=== PATIENT | male | born 1985 | race Caucasian/White ===

== ENCOUNTER 2018-03-30 09:14 | Emergency (ER) | payer SELFPAY ==
[2018-03-30 09:18] VITALS: BP 123/73; PULSE 71; RESP 15; TEMP 36.6
--- NOTE | 2018-03-30 10:14 | W.ED.GENAD ---
Discharge Plan Disposition Patient Disposition: HOME Condition: Stable Discharge Details Chief Complaint: DentalOral Clinical Impression: Pain, dental Primary Care Provider: Angelica Hidalgo ED Provider: Vick Hoskins Home Meds and New Rx's Prescriptions: New ibuprofen [IBU] 600 mg tablet 600 mg PO QID PRN (Reason: pain) Qty: 20 RF: 0 Continue acetaminophen 500 MG tablet 500 mg PO Q4H PRN (Reason: Pain) Qty: 30 RF: 0 [id number] [Excedrin Extra Strength] 250-250-65 mg Tablet 2 tab PO Q6H PRNRF: 0 Discontinued ibuprofen 200 MG tablet 800 mg PO PRN PRNRF: 0 Discharge Instructions Instructions: Toothache (ED) Additional Instructions: Feel free to return to the emergency department for new or worsening symptoms otherwise follow up with your dentist in [place] as soon as possible for reassessment and further definitive dental care. Referrals: Angelica Hidalgo [Primary Care Provider] - (If you are unable to follow-up with her dentist follow-up with your primary care provider as needed) Medical Decision Making MDM Narrative Medical decision making narrative: Patient presenting to the emergency department for chief complaint of dental pain for 3 days. Patient has no trismus, no drooling, no difficulty breathing, no vocal change. Physical exam shows missing teeth and multiple dental caries throughout the oral cavity with patient describing pain on the right upper posterior molars which are missing from dental removal and some tooth loss on left upper incisor with no signs of infection throughout any of the oral cavity. I feel that this is straightforward dental pain with no signs of Gurdeep's angina, infection, mastoiditis or other life-threatening emergencies. Patient was prescribed ibuprofen for his pain control and informed that he should follow-up with his dentist as soon as possible for reexamination. On the right upper molars from where the tooth was extracted there may be a retained fragment that is causing patient some discomfort but again no signs of serious infection so I feel that patient can be safely discharged and informed to follow-up with his primary care dentist. Patient was instructed on Orajel use along with sensitive toothpaste that may be of benefit. Patient encouraged to return for any new or worsening signs that were thoroughly discussed with him. After discussion of diagnosis and plan of care patient states no further needs, questions, or concerns at this time. HPI - General Adult General Mode of arrival: ambulatory. Date/Time Provider Initiated Documentation: 03/30/18 09:50. Limitations to Documentation: no limitations. Information obtained by: patient and RN notes reviewed. History of Present Illness 33 year old M presents to the emergency department with the chief complaint of Dental Pain, described as moderate, with intensity rated at 8. Quality is described as aching, and is localized to the mouth. Patient reports no radiation. Patient started experiencing this day(s) (3) and it has been constant. No relieving factors improve symptom(s), No exacerbating factors reported . Patient notes no other symptoms.. Patient did receive the following treatments prior to arrival, other (Excedrin extra strength) Related Data Home Medications Medication Instructions Recorded Confirmed [id number]-brzqcjwiglirm-imemdnsb 2 tab PO Q6H PRN 03/30/18 03/30/18 [Excedrin Extra Strength] Previous Rx's Medication Instructions Recorded acetaminophen 500 mg PO Q4H PRN #30 tablet 01/29/17 ibuprofen [IBU] 600 mg PO QID PRN #20 tab 03/30/18 Allergies Allergy/AdvReac Type Severity Reaction Status Date / Time Penicillins Allergy Severe Anaphylaxsi Unverified 03/30/18 09:23 s codeine Allergy Intermediate Hives Unverified 03/30/18 09:23 ketorolac Allergy Intermediate Skin Rash Unverified 03/30/18 09:23 tramadol Allergy Intermediate hives Unverified 03/30/18 09:23 naproxen [From Naprosyn] Allergy Mild hives Unverified 03/30/18 09:23 NUTS Allergy Severe Anaphylaxsi Uncoded 03/30/18 09:23 s General Stated Complaint: DentalOral PATRICIA: 4 Review of Systems Constitutional Denies body ache(s), Denies chills and Denies fever(s) ENT Reports as per HPI, Denies change in voice, Reports dental pain, Denies dysphagia, Denies lip swelling, Denies throat swelling and Denies tongue swelling Cardiovascular Denies chest pain and Denies dyspnea Respiratory Denies dyspnea Gastrointestinal Denies abdominal pain, Denies dysphagia, Denies nausea and Denies vomiting Integumentary/Breasts Denies rash Neurologic Denies confusion and Denies sensory deficit Psychiatric Denies confusion Allergic/Immunologic Denies lip swelling, Denies throat swelling and Denies tongue swelling [facility] Medical History ADHD (attention deficit hyperactivity disorder) Bipolar 1 disorder Chronic low back pain Tobacco abuse Social History Smoking/Tobacco Use Status: Current every day Surgical History Appendectomy (08/14/16) Fracture, Closed Treatment Exam Const General: cooperative, no acute distress and not ill appearing Orientation: alert, awake and oriented x3 [facility] General nose exam: external nose normal Face and sinus: normal facial exam and face symmetric Mouth: moist mucous membranes, no drooling, normal lip, No mouth trauma, no muffled voice, normal tongue, No abnormal TMJ and no trismus Teeth image: 1. missing teeth and pain no erythema, edema, or drainage 2. Some tooth loss with dental caries. No erythema, no edema, no drainage Throat: posterior oropharynx normal Neck Neck: normal visual inspection, no lymphadenopathy and no meningeal signs Resp Effort & Inspection: normal respiratory effort, able to speak in complete sentences and no respiratory distress Cardio Rate: regular rate Rhythm: regular rhythm Skin General skin exam: no rashes or lesions noted Neuro General: alert, awake, oriented x3, moves all extremities and no focal motor deficits Sensory Exam: no sensory deficits noted Course Vital Signs Temperature 36.6 C 03/30/18 09:18 Pulse 71 03/30/18 09:18 Respiratory Rate 15 03/30/18 09:18 Blood Pressure 123/73 03/30/18 09:18 Temperature 36.6 C 03/30/18 09:18 Pulse 71 03/30/18 09:18 Respiratory Rate 15 03/30/18 09:18 Blood Pressure 123/73 03/30/18 09:18
[2018-03-30] MEDS: Ibuprofen 600 MG TAB PO (10:21)
== END 2018-03-30 10:26 | disposition home or self-care (01) ==
PROVIDERS: Emergency Provider Nurse Practitioner Family; PCP Internal Medicine
DX: K08.89 Other specified disorders of teeth and supporting structures (principal)
CPT/HCPCS: 99283

== ENCOUNTER 2018-07-23 18:38 | Emergency (ER) | payer SELFPAY ==
[2018-07-23 18:43] VITALS: BP 160/94; PULSE 99; RESP 18; TEMP 36.8; O2SAT 100
--- NOTE | 2018-07-23 18:47 | ED.GENADUL_ITS ---
Discharge Plan Disposition Patient Disposition: HOME Condition: Good Discharge Details Chief Complaint: DentalOral Clinical Impression: Pain, dental Primary Care Provider: Angelica Hidalgo ED Provider: Sam Sharma Home Meds and New Rx's Prescriptions: New clindamycin HCl 150 mg capsule 450 mg PO TID 7 Days Qty: 63 RF: 0 acetaminophen [Mapap Extra Strength] 500 MG tablet 1,000 mg PO Q6H 5 Days Qty: 60 RF: 0 ibuprofen [Motrin IB] 200 MG tablet 600 mg PO Q6H 5 Days Qty: 60 RF: 0 No Action acetaminophen 500 MG tablet 500 mg PO Q4H PRN (Reason: Pain) Qty: 30 RF: 0 Excedrin Extra Strength 250-250-65 mg Tablet 2 tab PO Q6H PRNRF: 0 ibuprofen [IBU] 600 mg tablet 600 mg PO QID PRN (Reason: pain) Qty: 20 RF: 0 Discharge Instructions Instructions: Toothache (ED) Additional Instructions: Please take the Tylenol Motrin and antibiotic as directed. Please follow-up with a dentist as soon as possible for reassessment. If you notice any worsening of your symptoms, or any new symptoms such as vomiting, diarrhea, fever, chills, shortness of breath, chest pain, numbness, weakness, or fainting , please return immediately to the emergency department for reevaluation. Please follow up with your primary care provider as soon as possible for reassessment and reevaluation. As always, it was a pleasure participating in your medical care today. Medical Decision Making This is a 33-year-old male who presents with dental pain in his left upper molar. Pain is been present for the last 2-3 days. It is worse with palpation and eating. He has been taking occasional Tylenol and Motrin with no significant improvement. Physical exam demonstrates no evidence of periodontal or dental abscess. He has no systemic symptoms of fever or chills. Vital signs are reassuring. The patient does admit to having a reaction to a previous dental block in the past by having swelling and rash. We will avoid that. We will start the patient on antibiotics. We will prescribe maximum dose of Tylenol and Motrin and give him a dental resource sheet. We discussed red flags for which to return. We will give the first dose of clindamycin here I have extensively reviewed the treatment plan and discharge instructions with the patient. I have addressed all patient concerns at this time. The patient was made aware of what symptoms to monitor for that would warrant a return to the emergency department. Discussed the plan with the patient, they demonstrate verbal understanding and agreement with our assessment and plan at this time. HPI General Date/Time Provider Initiated Documentation: 07/23/18 18:40 . HPI Narrative: This is a 33-year-old male with no significant past medical history who presents today for evaluation of dental pain. The patient states that for the last 2-3 days he has had pain in his left upper posterior molar. It is worse with eating. He has been taking Tylenol and Motrin with no improvement. He admits to some mild amount of drainage. He has not yet contacted a dentist. He is coming here for relief. He denies any headache, or systemic symptoms of fever or chills. No other modifying factors. He has no other complaints at this time Related Data Home Medications Medication Instructions Recorded Confirmed acetaminophen 500 mg PO Q4H PRN #30 tablet 01/29/17 07/23/18 Excedrin Extra Strength 2 tab PO Q6H PRN 03/30/18 07/23/18 ibuprofen [IBU] 600 mg PO QID PRN #20 tab 03/30/18 07/23/18 acetaminophen [Mapap Extra 1,000 mg PO Q6H 5 Days #60 tab 07/23/18 Strength] clindamycin HCl 450 mg PO TID 7 Days #63 cap 07/23/18 ibuprofen [Motrin Ib] 600 mg PO Q6H 5 Days #60 tab 07/23/18 Previous Rx's Medication Instructions Recorded acetaminophen 500 mg PO Q4H PRN #30 tablet 01/29/17 ibuprofen [IBU] 600 mg PO QID PRN #20 tab 03/30/18 acetaminophen [Mapap Extra 1,000 mg PO Q6H 5 Days #60 tab 07/23/18 Strength] clindamycin HCl 450 mg PO TID 7 Days #63 cap 07/23/18 ibuprofen [Motrin Ib] 600 mg PO Q6H 5 Days #60 tab 07/23/18 Allergies Allergy/AdvReac Type Severity Reaction Status Date / Time lidocaine Allergy Severe Unverified 07/23/18 18:45 Penicillins Allergy Severe Anaphylaxsi Unverified 03/30/18 09:23 s codeine Allergy Intermediate Hives Unverified 03/30/18 09:23 ketorolac Allergy Intermediate Skin Rash Unverified 03/30/18 09:23 tramadol Allergy Intermediate hives Unverified 03/30/18 09:23 naproxen [From Naprosyn] Allergy Mild hives Unverified 03/30/18 09:23 NUTS Allergy Severe Anaphylaxsi Uncoded 03/30/18 09:23 s General Stated Complaint: DentalOral PATRICIA: 4 Review of Systems Review of Systems All systems reviewed & are unremarkable except as noted in HPI and below PFSH Social History Smoking/Tobacco Use Status: Current every day Exam Narrative Exam Narrative: 1.Const: Well-nourished, Well-developed, appearing stated age 2.Eyes: PERRL, no conjunctival injection, and symmetrical lids. 3.ENT: Atraumatic external nose and ears. Moist MM. Neck: Symmetric, trachea midline, No thyromegaly. Small amount of dental caries. No evidence of massive dental carry over the affected tooth. No evidence of dental or periodontal abscess that I can appreciate. No evidence of fractured tooth. No other significant abnormality on exam. No active drainage. No trismus. Patient demonstrates good movement of cervical neck. There is no nuchal rigidity, no nuchal tenderness. Patient is able to flex the neck without any difficulty or significant pain. Negative Kernig's and Brudzinski sign. 4.CVS: +S1/S2, No murmurs or gallops. Peripheral pulses 2+ and equal in all extremities. Brisk capillary refill in all extremities. 5.RESP: Unlabored respiratory effort. Clear to auscultation bilaterally. No wheezes rales or rhonchi 6.GI: Soft, Nontender/Nondistended, No hepatosplenomegaly. No guarding or rebound. 7.MSK: Normocephalic/Atraumatic, Extremities w/o deformity or ttp No cyanosis or clubbing, Normal movement of all extremities 8.Skin: Warm, Dry. No rashes or lesions. 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 Sensation grossly intact, no focal neurologic deficits. 10.Psych: (AAO) x3. Appropriate mood and affect Course Vital Signs Temperature 36.8 C 07/23/18 18:43 Pulse 99 H 07/23/18 18:43 Respiratory Rate 18 07/23/18 18:43 Blood Pressure 160/94 H 07/23/18 18:43 Pulse Oximetry 100 07/23/18 18:43 Temperature 36.8 C 07/23/18 18:43 Temperature Source Temporal Artery Scan 07/23/18 18:43 Pulse 99 H 07/23/18 18:43 Respiratory Rate 18 07/23/18 18:43 Blood Pressure 160/94 H 07/23/18 18:43 Blood Pressure Position Sitting 07/23/18 18:43 Pulse Oximetry 100 07/23/18 18:43 Oxygen Delivery Method Room Air 07/23/18 18:43 Oxygen Flow Rate 0 07/23/18 18:43 Pain Level 10 07/23/18 18:43
[2018-07-23] MEDS: Clindamycin 150 MG CAP 450 MG PO (18:50)
--- NOTE | 2018-07-23 18:50 | NUR.NOTE ---
patient medicated per MD order Nursing Note:
== END 2018-07-23 18:56 | disposition home or self-care (01) ==
LOC: ER 18:58
PROVIDERS: Emergency Provider Student in an Organized Health Care Education/Training Program; PCP Internal Medicine
DX: R68.84 Jaw pain (principal); K08.89 Other specified disorders of teeth and supporting structures
CPT/HCPCS: 99283

== ENCOUNTER 2018-09-12 09:10 | Emergency (ER) | payer SELFPAY ==
[2018-09-12 09:15] VITALS: BP 130/86; PULSE 75; RESP 16; TEMP 36.7; O2SAT 98
--- NOTE | 2018-09-12 09:32 | DI.RAD_ITS ---
SYMPTOM/DIAGNOSIS: BACK PAIN S/P SHOVELING SNOW THORACIC SPINE: There is no evidence of fracture. The alignment appears normal. The visualized portions of the lungs appear clear. IMPRESSION: Negative thoracic spine. LUMBAR SPINE: There is no evidence of fracture. The alignment appears normal. The disc spaces are well maintained. Surgical clips are noted in the right side of the upper pelvis. IMPRESSION: No acute abnormality.
[2018-09-12] MEDS: Lidocaine 5% Patch 2 PATCH TP (09:52)
[2018-09-12] MEDS: methylPREDNISolone SUCC 125 MG VIAL IVP (09:52)
[2018-09-12] MEDS: Cyclobenzaprine 10 MG TAB PO (09:52)
--- NOTE | 2018-09-12 10:24 | W.ED.GENAD ---
Discharge Plan Disposition Patient Disposition: HOME Condition: Good Discharge Details Chief Complaint: Nk/Back Pain Clinical Impression: Back pain, Muscle strain Primary Care Provider: Angelica Hidalgo ED Provider: Sam Sharma Home Meds and New Rx's Prescriptions: New cyclobenzaprine 10 mg tablet 10 mg PO TID Qty: 14 RF: 0 acetaminophen [Mapap Extra Strength] 500 MG tablet 1,000 mg PO Q6H 5 Days Qty: 60 RF: 0 prednisone 50 MG tablet 50 mg PO DAILY Qty: 5 RF: 0 ibuprofen [Motrin IB] 200 MG tablet 600 mg PO Q6H 5 Days Qty: 60 RF: 0 No Action acetaminophen 500 MG tablet 500 mg PO Q4H PRN (Reason: Pain) Qty: 30 RF: 0 Excedrin Extra Strength 250-250-65 mg Tablet 2 tab PO Q6H PRNRF: 0 ibuprofen [IBU] 600 mg tablet 600 mg PO QID PRN (Reason: pain) Qty: 20 RF: 0 Discharge Instructions Instructions: Back Pain (ED) Additional Instructions: Please take medication as directed. If you notice any worsening of your symptoms, or any new symptoms such as numbness or tingling in your groin, bowel or bladder incontinence vomiting, diarrhea, fever, chills, shortness of breath, chest pain, numbness, weakness, or fainting , please return immediately to the emergency department for reevaluation. Please follow up with your primary care provider as soon as possible for reassessment and reevaluation. As always, it was a pleasure participating in your medical care today. Referrals: Angelica Hidalgo [Primary Care Provider] - Medical Decision Making This is a pleasant 33-year-old male who presents with 3 days of lower back pain that occurred after a notable amount of shoveling snow. On the initial event he felt a pop when he was lifting very heavy onto snow. Since then he has had no concerning red flags of saddle anesthesia, bowel or bladder incontinence, or other numbness tingling or weakness. The pain is located paraspinally with some midline component. He denies any urinary symptoms. He denies any abdominal pain vomiting or diarrhea. He denies any history of back injury or back surgery. Physical exam at this time is inconsistent with cauda equina syndrome as well as aortic dissection with equal pulses throughout and normal sensation and capillary refill. I am concern for a mild spinous process fracture versus musculoskeletal strain. We will get x-rays to evaluate for any acute fracture. We will give Lidoderm patch, and steroids. He has recently taken NSAID within the last few hours. We will give Flexeril for muscle relaxant. 11:05 AM The x-ray results have returned show no evidence of acute fracture or other abnormality. I feel that the patient signs symptoms are clinically consistent with a muscle strain, and inconsistent with cauda equina syndrome, or significant neurovascular compromise, especially in light of the reproducible component on palpation of the back and paraspinal musculature. Patient will be given a prescription for Flexeril, continue Tylenol and Motrin, and close follow-up. We discussed the importance of return for various red flags for osseous abnormality. We discussed the importance of MRI follow-up with the patient's primary care provider. I have extensively reviewed the treatment plan and discharge instructions with the patient. I have addressed all patient concerns at this time. The patient was made aware of what symptoms to monitor for that would warrant a return to the emergency department. Discussed the plan with the patient, they demonstrate verbal understanding and agreement with our assessment and plan at this time. TECHNIQUE: XR of the lumbar spine, 4 or 5 views. COMPARISON: CR LUMBAR SPINE COMPLETE 11/04/2017 12:10 PM FINDINGS: Vertebrae: Minimal levoscoliosis of the lumbar spine There is no evidence of acute fracture. There is no evidence of malalignment or dislocation. Soft tissues: Normal. IMPRESSION: There is no evidence of acute fracture. There is no evidence of malalignment or dislocation. Dictated and Authenticated by: Laureano Whatley MD. Technique: XR of the thoracic spine, 3 views. Comparison: No relevant prior studies available. Findings: Vertebrae: Normal. No acute fracture. Normal alignment. Soft tissues: Normal. Impression: Unremarkable radiograph. Dictated and Authenticated by: Laureano Whatley MD. Ordering:TRACI Vargas MD HPI General Date/Time Provider Initiated Documentation: 09/12/18 09:25. HPI Narrative: This is a pleasant 33-year-old male with no significant past medical history who presents today for evaluation of back pain. The patient states that 3 days ago he was shoveling some very heavy snow when he felt a pop in his back and then had notable back pain in his mid to lower back region. Better with standing, worse with sitting and lying flat. He denies any numbness or tingling. He denies any saddle anesthesia, weakness of his lower extremities, bowel or bladder incontinence, or other complaints. He denies any vomiting or diarrhea. He denies any chest pain, cough, fever or chills. He denies having symptoms like this in the past. Patient denies any other modifying factors. He has been taking Tylenol and Motrin but has had no significant improvement with this. He denies any previous surgeries, falls, or other complaints Related Data Home Medications Medication Instructions Recorded Confirmed acetaminophen 500 mg PO Q4H PRN #30 tablet 01/29/17 09/12/18 Excedrin Extra Strength 2 tab PO Q6H PRN 03/30/18 09/12/18 ibuprofen [IBU] 600 mg PO QID PRN #20 tab 03/30/18 09/12/18 acetaminophen [Mapap Extra 1,000 mg PO Q6H 5 Days #60 tab 09/12/18 Strength] cyclobenzaprine 10 mg PO TID #14 tab 09/12/18 ibuprofen [Motrin Ib] 600 mg PO Q6H 5 Days #60 tab 09/12/18 prednisone 50 mg PO DAILY #5 tab 09/12/18 Previous Rx's Medication Instructions Recorded acetaminophen 500 mg PO Q4H PRN #30 tablet 01/29/17 ibuprofen [IBU] 600 mg PO QID PRN #20 tab 03/30/18 acetaminophen [Mapap Extra 1,000 mg PO Q6H 5 Days #60 tab 09/12/18 Strength] cyclobenzaprine 10 mg PO TID #14 tab 09/12/18 ibuprofen [Motrin Ib] 600 mg PO Q6H 5 Days #60 tab 09/12/18 prednisone 50 mg PO DAILY #5 tab 09/12/18 Allergies Allergy/AdvReac Type Severity Reaction Status Date / Time Penicillins Allergy Severe Anaphylaxsi Unverified 09/12/18 09:23 s codeine Allergy Intermediate Hives Unverified 09/12/18 09:23 ketorolac Allergy Intermediate Skin Rash Unverified 09/12/18 09:23 tramadol Allergy Intermediate hives Unverified 09/12/18 09:23 naproxen [From Naprosyn] Allergy Mild hives Unverified 09/12/18 09:23 NUTS Allergy Severe Anaphylaxsi Uncoded 09/12/18 09:23 s General Stated Complaint: Nk/Back Pain PATRICIA: 3 Review of Systems Review of Systems All systems reviewed & are unremarkable except as noted in HPI and below PFSH Social History Smoking and Tabacco status: Current every day Exam Narrative Exam Narrative: 1.Const: Well-nourished, Well-developed, appearing stated age 2.Eyes: PERRL, no conjunctival injection, and symmetrical lids. 3.ENT: Atraumatic external nose and ears. Moist MM. Neck: Symmetric, trachea midline, No thyromegaly. 4.CVS: +S1/S2, No murmurs or gallops. Peripheral pulses 2+ and equal in all extremities. Brisk capillary refill in all extremities. 5.RESP: Unlabored respiratory effort. Clear to auscultation bilaterally. No wheezes rales or rhonchi 6.GI: Soft, Nontender/Nondistended, No hepatosplenomegaly. No guarding or rebound. 7.MSK: Normocephalic/Atraumatic, Extremities w/o deformity or ttp No cyanosis or clubbing, Normal movement of all extremities. No midline tenderness to palpation over the cervical or spine. Mild midline tenderness for the lumbar spine, with no focality, worse paraspinal tenderness bilaterally lumbar spine. No significant midline thoracic tenderness. Normal ROM in flexion, extension, side bend, and rotation. Patient has +5 out of 5 strength in the lower extremities in dorsiflexion and plantarflexion, knee flexion and extension, hip flexion and extension. Excellent strength for plantar and dorsiflexion of the great toe. Achilles reflex normal. There is +2 over 2 dorsalis pedis pulses bilaterally. There is normal sensation to the skin with light touch at the foot, knee, and hip. Normal saddle sensation. Good sensation over the deep sural nerve area bilaterally. Rectal exam demonstrates good perirectal sensation and good rectal tone. Reflexes are +2 over 4 in the patellar reflex bilaterally. +5 out of 5 strength in the medial, ulnar, radial nerve distribution bilaterally in the hands as well as intact light touch sensation to these dermatomes on the hands 8.Skin: Warm, Dry. No rashes or lesions. 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 Sensation grossly intact, no focal neurologic deficits. 10.Psych: (AAO) x3. Appropriate mood and affect Course Vital Signs Temperature 36.7 C 09/12/18 09:15 Pulse 75 09/12/18 09:15 Respiratory Rate 16 09/12/18 09:15 Blood Pressure 130/86 09/12/18 09:15 Pulse Oximetry 98 09/12/18 09:15 Temperature 36.7 C 09/12/18 09:15 Temperature Source Temporal Artery Scan 09/12/18 09:15 Pulse 75 09/12/18 09:15 Respiratory Rate 16 09/12/18 09:15 Respiratory Effort Non-Labored 09/12/18 09:17 Blood Pressure 130/86 09/12/18 09:15 Blood Pressure Position Sitting 09/12/18 09:15 Pulse Oximetry 98 09/12/18 09:15 Oxygen Delivery Method Room Air 09/12/18 09:15 Oxygen Flow Rate 0 09/12/18 09:15 Pain Level 9 09/12/18 09:15
--- NOTE | 2018-09-12 10:53 | DI.VRAD_ITS ---
EXAM: XR Thoracic Spine, 3 Views EXAM DATE/TIME: 09/12/2018 9:35 AM CLINICAL HISTORY: 33 years old, male; Pain; Pain in thoracic spine TECHNIQUE: XR of the thoracic spine, 3 views. COMPARISON: No relevant prior studies available. FINDINGS: Vertebrae: Normal. No acute fracture. Normal alignment. Soft tissues: Normal. IMPRESSION: Unremarkable radiograph. Dictated and Authenticated by: Laureano Whatley MD. Ordering:TRACI Vargas MD
--- NOTE | 2018-09-12 10:54 | DI.VRAD_ITS ---
EXAM: XR Lumbar Spine, 4 or 5 Views EXAM DATE/TIME: 09/12/2018 9:35 AM CLINICAL HISTORY: 33 years old, male; Injury or trauma; Injury history: Twisted while shoveling; Initial encounter; Sprain or strain, lumbar ligaments TECHNIQUE: XR of the lumbar spine, 4 or 5 views. COMPARISON: CR LUMBAR SPINE COMPLETE 11/04/2017 12:10 PM FINDINGS: Vertebrae: Minimal levoscoliosis of the lumbar spine There is no evidence of acute fracture. There is no evidence of malalignment or dislocation. Soft tissues: Normal. IMPRESSION: There is no evidence of acute fracture. There is no evidence of malalignment or dislocation. Dictated and Authenticated by: Laureano Whatley MD. Ordering:TRACI Vargas MD
== END 2018-09-12 11:14 | disposition home or self-care (01) ==
PROVIDERS: Emergency Provider Student in an Organized Health Care Education/Training Program; PCP Internal Medicine
DX: M54.5 Low back pain (principal); S39.012A Strain of muscle, fascia and tendon of lower back, initial encounter; X50.3XXA Overexertion from repetitive movements, initial encounter; Y93.H1 Activity, digging, shoveling and raking
CPT/HCPCS: 96374; 99284; 72072; 72110; 99285; J2930

== ENCOUNTER 2018-12-02 07:43 | Emergency (ER) | payer SELFPAY ==
[2018-12-02 07:46] VITALS: BP 129/85; PULSE 84; RESP 16; TEMP 36.6; O2SAT 99
--- NOTE | 2018-12-02 08:07 | ED.GENADUL_ITS ---
Discharge Plan Disposition Patient Disposition: HOME Condition: Stable Discharge Details Chief Complaint: DentalOral Clinical Impression: Pain, dental Primary Care Provider: Angelica Hidalgo ED Provider: Eric Whitlock Home Meds and New Rx's Prescriptions: New clindamycin HCl 150 mg capsule 450 mg PO TID 7 Days Qty: 63 RF: 0 No Action No Known Home Meds RF: 0 Discharge Instructions Instructions: Toothache (ED) Additional Instructions: follow up with a dentist take 1000mg tylenol and 600mg ibuprofen every 6 hours for pain if you have severe respiratory distress or inability to swallow liquids return to the emergency department Medical Decision Making 33 yo male comes in with anterior lower right incisor pain for 2 days. Is missing numerous teeth and has numerous dental caries, states 2 days ago the tooth broke and has had pain since. no fevers, no drooling or respiratory distress. Inferior medial right lower incisor with small ~-.5cm area of missing tooth without pulp exposed on exam, no absess, no submandibular swelling or pain over hyoid with normal oropharynx, so doubt rpa, ludwigs, epiglotitis at this time. Will start on abx for possible infection and advised f/u with dentist Differential Diagnosis pulpitis, broken tooth HPI General Mode of arrival: ambulatory . Date/Time Provider Initiated Documentation: 12/02/18 07:50 . Limitations to Documentation: no limitations . Information obtained by: patient . History of Present Illness 33 year old M presents to the emergency department with the chief complaint of dental pain, described as moderate and severe, and is localized to the mouth. Patient started experiencing this day(s) (2) and it has been constant. No relieving factors improve symptom(s), No exacerbating factors reported . Patient did receive the following treatments prior to arrival, NSAID Related Data Home Medications Medication Instructions Recorded Confirmed Unknown [No Known Home Meds] 12/02/18 12/02/18 clindamycin HCl 450 mg PO TID 7 Days #63 cap 12/02/18 Previous Rx's Medication Instructions Recorded clindamycin HCl 450 mg PO TID 7 Days #63 cap 12/02/18 Allergies Allergy/AdvReac Type Severity Reaction Status Date / Time Penicillins Allergy Severe Anaphylaxsi Unverified 12/02/18 07:49 s codeine Allergy Intermediate Hives Unverified 12/02/18 07:49 ketorolac Allergy Intermediate Skin Rash Unverified 12/02/18 07:49 tramadol Allergy Intermediate hives Unverified 12/02/18 07:49 naproxen [From Naprosyn] Allergy Mild hives Unverified 12/02/18 07:49 bupivacaine Allergy Swelling/Ed Unverified 12/02/18 07:49 colby NUTS Allergy Severe Anaphylaxsi Uncoded 12/02/18 07:49 s General Stated Complaint: DentalOral PATRICIA: 4 Review of Systems Review of Systems All systems reviewed & are unremarkable except as noted in HPI and below Constitutional Denies chills and Denies fever(s) ENT Denies change in voice Cardiovascular Denies dyspnea Respiratory Denies dyspnea Gastrointestinal Denies vomiting PFSH Social History Smoking/Tobacco Use Status: Current every day Tobacco Type: cigarettes Alcohol Intake: never Drug use: Occasionally Substance use type: marijuana Do you feel safe at home: Yes Do you feel safe in your relationship?: Yes Exam Const General: no acute distress Orientation: alert HENMT Head: normal to inspection Ears: external ears normal General nose exam: external nose normal Mouth: moist mucous membranes Eyes General: appearance normal, both eyes and all related structures Neck Neck: normal visual inspection Resp Effort & Inspection: normal respiratory effort and able to speak in complete sentences Cardio Rate: regular rate Skin General skin exam: no rashes or lesions noted Neuro General: alert and oriented x3 Extrem General: normal to inspection Psych Mental Status: mental status grossly normal Course Vital Signs Temperature 36.6 C 12/02/18 07:46 Pulse 84 12/02/18 07:46 Respiratory Rate 16 12/02/18 07:46 Blood Pressure 129/85 12/02/18 07:46 Pulse Oximetry 99 12/02/18 07:46 Temperature 36.6 C 12/02/18 07:46 Temperature Source Skin 12/02/18 07:46 Pulse 84 12/02/18 07:46 Respiratory Rate 16 12/02/18 07:46 Respiratory Effort Non-Labored 12/02/18 07:49 Blood Pressure 129/85 12/02/18 07:46 Blood Pressure Position Sitting 12/02/18 07:46 Pulse Oximetry 99 12/02/18 07:46
== END 2018-12-02 08:14 | disposition home or self-care (01) ==
LOC: ER 08:14
PROVIDERS: Emergency Provider Emergency Medicine; PCP Internal Medicine
DX: K08.89 Other specified disorders of teeth and supporting structures (principal); K03.81 Cracked tooth
CPT/HCPCS: 99282

== ENCOUNTER 2019-09-06 09:21 | Emergency (ER) | payer SELFPAY ==
[2019-09-06 09:26] VITALS: BP 130/96; PULSE 105; RESP 18; TEMP 36.5; O2SAT 98
--- NOTE | 2019-09-06 09:47 | W.ED.GENAD ---
Discharge Plan Disposition Patient Disposition: HOME Condition: Good Discharge Details Chief Complaint: Nk/Back Pain Clinical Impression: Back strain Primary Care Provider: None,None ED Provider: Sam Sharma Home Meds and New Rx's Prescriptions: New cyclobenzaprine 10 mg tablet 10 mg PO TID Qty: 14 RF: 0 prednisone 50 MG tablet 50 mg PO DAILY Qty: 5 RF: 0 lidocaine [Lidoderm] 1 PATCH patch 1 patch Topical Q24H Qty: 4 RF: 0 Discharge Instructions Instructions: Back Pain (ED) Additional Instructions: At this time as we discussed we will hold off on imaging. However if your symptoms worsen please return immediately for repeat assessment in the imaging that we discussed. At this time your signs and symptoms are clinically consistent with a back sprain. This can cause significant pain and take a fair bit of time to heal. I expect 1 to 2 months for potential resolution. In the meantime do not lift anything greater than 5 pounds for the next 2 weeks. Avoid any significant vigorous physical activity. Perform easy gentle regular activities at home without any significant bending or lifting. Please take the steroids as directed. You have been given a prescription for Lidoderm patch. If your insurance does not cover this you can get [id number] Lidoderm patches at 4% which are almost just as effective. Please take the Flexeril as directed but do not take it when driving or operating any vehicles or heavy machinery, swimming, taking long baths, or operating firearms. Please use a heating pad as often as possible on your back. Perform daily gentle stretches on your back. Please continue to take the Tylenol and Motrin. You can take 1000 mg of Tylenol every 6 hours and 600 mg of ibuprofen every 6 hours. If you notice any worsening of your symptoms, or any new symptoms such as vomiting, diarrhea, fever, chills, shortness of breath, chest pain, numbness or tingling in your groin or legs, weakness in your legs, loss of control for your bowels or bladder, or fainting , please return immediately to the emergency department for reevaluation. Please follow up with your primary care provider as soon as possible for reassessment and reevaluation. As always, it was a pleasure participating in your medical care today. 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 Patient states that 1 week ago after shoveling snow he did have a small fall, it landed on his right back. He had mild pain since then, it is continued in spite of the Tylenol and Motrin that he has been taking. Patient denies any saddle anesthesia, numbness or tingling in the groin, change in sensation when wiping. Patient denies any change in sensation during sexual intercourse, difficulty achieving or maintaining an erection or ejaculation, bowel or bladder incontinence, leakage, or retention. Patient denies any weakness in the lower extremities, atypical falls or imbalance. Patient states that this feels similar to his previous back pain, similar to when we got CT scans of his spine recently. He states that it is slightly worse though otherwise. He denies any other complaints at this time. No other modifying factors. Slightly unassociated he does also state that he is tingling in his fourth and fifth digit when he completely flexes his right elbow and brings it up close against his chest. He denies any other pain or trauma in this area. Physical exam demonstrates minimal tenderness over the midline lumbar spine, no tenderness over the thoracic or cervical spine whatsoever. There is mild paraspinal tenderness by the lumbar spine. No step-off sign. Physical exam shows no signs or symptoms concerning for cauda equina syndrome. Patient did have midline tenderness on his last visit after a fall with shoveling, however radiographic imaging at that time was negative. I did discuss imaging options for the patient and at this time through notable discussion, weighing the risks and benefits, and a shared decision making process the patient has refused imaging at this time. Patient is of an appropriate age to make decisions. The patient is of sound mind, appears clinically sober, and has capacity to make decisions by my clinical exam. Respecting the patient's wishes we will hold off on imaging. Patient does state though that if his symptoms do not improve over the next few days he will be back to get the imaging. Signs and symptoms at this time appear clinically consistent with musculoskeletal back strain. We will give Flexeril Lidoderm patch, prednisone Tylenol and Motrin. Discussed the need for heating pad and red flags which to immediately return as well as my recommendations for returning for imaging at any point if he changes his mind or symptoms are not improving or worsening. I have extensively reviewed the treatment plan and discharge instructions with the patient. I have addressed all patient concerns at this time. The patient was made aware of what symptoms to monitor for that would warrant a return to the emergency department. Discussed the plan with the patient, they demonstrate verbal understanding and agreement with our assessment and plan at this time. HPI General Date/Time Provider Initiated Documentation: 09/06/19 09:23. 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 Patient states that 1 week ago after shoveling snow he did have a small fall, it landed on his right back. He had mild pain since then, it is continued in spite of the Tylenol and Motrin that he has been taking. Patient denies any saddle anesthesia, numbness or tingling in the groin, change in sensation when wiping. Patient denies any change in sensation during sexual intercourse, difficulty achieving or maintaining an erection or ejaculation, bowel or bladder incontinence, leakage, or retention. Patient denies any weakness in the lower extremities, atypical falls or imbalance. Patient states that this feels similar to his previous back pain, similar to when we got x-rays of his spine recently. He states that it is slightly worse though otherwise. He denies any other complaints at this time. No other modifying factors. Slightly unassociated he does also state that he is tingling in his fourth and fifth digit when he completely flexes his right elbow and brings it up close against his chest. He denies any other pain or trauma in this area. Related Data Home Medications Medication Instructions Recorded Confirmed cyclobenzaprine 10 mg PO TID #14 tab 09/06/19 lidocaine [Lidoderm] 1 patch TOPICAL Q24H #4 patch 09/06/19 prednisone 50 mg PO DAILY #5 tab 09/06/19 Previous Rx's Medication Instructions Recorded cyclobenzaprine 10 mg PO TID #14 tab 09/06/19 lidocaine [Lidoderm] 1 patch TOPICAL Q24H #4 patch 09/06/19 prednisone 50 mg PO DAILY #5 tab 09/06/19 Allergies Allergy/AdvReac Type Severity Reaction Status Date / Time Penicillins Allergy Severe Anaphylaxsi Unverified 09/06/19 09:30 s codeine Allergy Intermediate Hives Unverified 09/06/19 09:30 ketorolac Allergy Intermediate Skin Rash Unverified 09/06/19 09:30 tramadol Allergy Intermediate hives Unverified 09/06/19 09:30 naproxen [From Naprosyn] Allergy Mild hives Unverified 09/06/19 09:30 bupivacaine Allergy Swelling/Ed Unverified 09/06/19 09:30 colby NUTS Allergy Severe Anaphylaxsi Uncoded 09/06/19 09:30 s General Stated Complaint: Nk/Back Pain PATRICIA: 4 Review of Systems All systems reviewed & are unremarkable except as noted in HPI and below PFSH Social History Smoking/Tobacco Use Status: Current every day Tobacco Type: cigarettes Alcohol Intake: former Drug use: Occasionally Substance use type: marijuana Do you feel safe at home: Yes Do you feel safe in your relationship?: Yes Exam Narrative Exam Narrative: 1.Const: Well-nourished, Well-developed, appearing stated age 2.Eyes: PERRL, no conjunctival injection, and symmetrical lids. 3.ENT: Atraumatic external nose and ears. Moist MM. Neck: Symmetric, trachea midline, No thyromegaly. 4.CVS: +S1/S2, No murmurs or gallops. Peripheral pulses 2+ and equal in all extremities. Brisk capillary refill in all extremities. 5.RESP: Unlabored respiratory effort. Clear to auscultation bilaterally. No wheezes rales or rhonchi 6.GI: Soft, Nontender/Nondistended, No hepatosplenomegaly. No guarding or rebound. 7.MSK: Normocephalic/Atraumatic, Extremities w/o deformity or ttp No cyanosis or clubbing, Normal movement of all extremities no midline tenderness to palpation over the CTS spine. He does have minimal midline but worse paraspinal tenderness over the lower lumbar spine. No step-off sign. Normal ROM in flexion, extension, side bend, and rotation. Patient has +5 out of 5 strength in the lower extremities in dorsiflexion and plantarflexion, knee flexion and extension, hip flexion and extension. Normal strength for dorsiflexion and plantar flexion of the great toe bilaterally. There is +2 over 2 dorsalis pedis pulses bilaterally. There is normal sensation to the skin with light touch at the foot, knee, and hip. Normal saddle sensation. Good sensation over the deep sural nerve area bilaterally. Rectal exam demonstrates normal rectal tone, good perirectal sensation. Reflexes are +2 over 4 in the patellar reflex bilaterally. +5 out of 5 strength in the medial, ulnar, radial nerve distribution bilaterally in the hands as well as intact light touch sensation to these dermatomes on the hands. Exam of the right upper extremity demonstrates no abnormality in strength or tenderness. Normal flexion extension of the elbow wrist hand, normal movement in strength of the right shoulder. Symmetrically palpable radial and ulnar pulses. Capillary refill less than 2 seconds to all digits. Intact sensation to light touch of the radial, median and ulnar nerves demonstrated by testing in the dorsal web space of the thumb, the distal palmar aspect of the index finger, and the lateral surface of the fifth finger. 2 point discrimination intact to 5mm (up to 6mm can be normal in digits 3-5) of discrimination in the affected digit. 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 Intact recurrent median nerve as demonstrated by ability to move thumb fully through opposition, abduction and flexion. No snuffbox tenderness. Prolonged elevation of the right upper extremity holding over the head demonstrates no return of his symptoms, however percussion of the median cubital tunnel does demonstrate mild tenderness and tingling in the fourth and fifth digit. 8.Skin: Warm, Dry. No rashes or lesions. 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 Sensation grossly intact, no focal neurologic deficits. Please see musculoskeletal 10.Psych: (AAO) x3. Appropriate mood and affect Course Vital Signs Vital signs: Vital Signs Temperature 36.5 C 09/06/19 09:26 Pulse 105 H 09/06/19 09:26 Respiratory Rate 18 09/06/19 09:26 Blood Pressure 130/96 H 09/06/19 09:26 Pulse Oximetry 98 09/06/19 09:26 Temperature 36.5 C 09/06/19 09:26 Pulse 105 H 09/06/19 09:26 Respiratory Rate 18 09/06/19 09:26 Respiratory Effort Non-Labored 09/06/19 09:28 Blood Pressure 130/96 H 09/06/19 09:26 Blood Pressure Position Sitting 09/06/19 09:26 Pulse Oximetry 98 09/06/19 09:26 Oxygen Delivery Method Room Air 09/06/19 09:26 Oxygen Flow Rate 0 09/06/19 09:26 Pain Level 10 09/06/19 09:26
[2019-09-06] MEDS: Lidocaine 5% Patch 1 PATCH TP (09:51)
[2019-09-06] MEDS: predniSONE 20 MG TAB 60 MG PO (09:52)
[2019-09-06] MEDS: Cyclobenzaprine 10 MG TAB PO (09:52)
--- NOTE | 2019-09-06 12:14 | CMPROGNOTE_ITS ---
Care Management Progress Note CM consult request for lack of insurance coverage and prescription support. Herman reports he is staying with a friend on a couch in [facility], and reports this is a safe and stable arrangement at this time. He reports he would prefer having a hotel voucher. CM reviewed eligibility for voucher program, limitations and shared that Herman would need to present to [employer] in person, but with ongoing back pain if he felt he would be better served than on the couch then he could seek the support. CM also reviewed [facility] group home information but Herman reported he could not deal with other people and that the cots would be harder on his back than the couch. Herman was sitting on the side of the stretcher, appearing in pain. CM reviewed [facility] option for insurance and prescription support. Herman reported he was discharging with one flexerall and anticipated returning home to rest and then going to [facility] tomorrow. CM encouraged Herman to go to [facility] today and offered to fax a referral, though Herman declined.
== END 2019-09-06 10:15 | disposition home or self-care (01) ==
PROVIDERS: Emergency Provider Student in an Organized Health Care Education/Training Program
DX: S39.012A Strain of muscle, fascia and tendon of lower back, initial encounter (principal); W00.0XXA Fall on same level due to ice and snow, initial encounter
CPT/HCPCS: 99283; J7512

== ENCOUNTER 2020-01-14 09:00 | Emergency (ER) | payer SELFPAY ==
[2020-01-14 09:05] VITALS: BP 137/98; PULSE 89; RESP 18; TEMP 36.6; O2SAT 95
[2020-01-14 09:26] LABS: Bilirubin Negative (Negative); Blood Negative (Negative); Clarity Clear (Clear); Glucose Negative (Negative); Ketones Negative (Negative); Leukocyte Esterase Negative (Negative); Nitrite Negative (Negative); Specific Gravity 1.015 (1.005-1.025); Urobilinogen 0.2 EU/dL (Up TO 0.2); pH 8.5 (5-8)
--- NOTE | 2020-01-14 09:37 | W.ED.GENAD ---
Discharge Plan Disposition Patient Disposition: HOME Condition: Stable Discharge Details Chief Complaint: Urinary Clinical Impression: Hematuria Primary Care Provider: None,None ED Provider: Doyle Mata Home Meds and New Rx's Prescriptions: No Action Aleve PM 220-25 mg Tablet 1 tab PO HS RF: 0 Discharge Instructions Instructions: Hematuria (ED) Additional Instructions: Please contact your primary care physician to arrange follow-up. Call to speak with care management about arranging a primary care appointment. Urine cultures are pending at time of discharge. Be sure to discuss these results with your doctor. If bleeding recurs, please follow-up with urology. Return to the ER for any worsening or new concerning symptoms. Referrals: Scottie Day MD [ [facility] STAFF PHYSICIAN] - Discharge Data Discharge Date/Time-TO BE ENTERED AT DEPARTURE: 01/14/20 10:00 Medical Decision Making 34-year-old male here after episode of painless hematuria this morning. Now resolved. No concerning findings on examination. Urinalysis was reviewed and interpreted by me: There are 3-5 red blood cells per high-power field. Plan to send gonorrhea and Chlamydia testing. Plan to have the patient follow-up with urology. Results were reviewed with the patient. Usual and customary discharge instructions were reviewed the patient. He was encouraged to return to the emergency department should have any worsening or new concerning symptoms. Patient verbalized understanding of the importance of timely follow-up. HPI General Mode of arrival: ambulatory. Date/Time Provider Initiated Documentation: 01/14/20 09:10. Limitations to Documentation: no limitations. Information obtained by: patient. HPI Narrative: 34-year-old male presents with chief complaint of blood in his urine. Patient notes that he was urinating this morning and noted a small amount of bright red blood in his urine. This resolved and subsequently urine has been clear yellow. Patient denies associated dysuria. No increased urinary frequency. No testicular pain. No abnormal rash. No abdominal pain. No recent sexual acitivity. Related Data Home Medications Medication Instructions Recorded Confirmed naproxen-diphenhydramine [Aleve PM] 1 tab PO HS 01/14/20 01/14/20 Allergies Allergy/AdvReac Type Severity Reaction Status Date / Time Penicillins Allergy Severe Anaphylaxsi Unverified 01/14/20 09:12 s codeine Allergy Intermediate Hives Unverified 01/14/20 09:12 ketorolac Allergy Intermediate Skin Rash Unverified 01/14/20 09:12 tramadol Allergy Intermediate hives Unverified 01/14/20 09:12 naproxen [From Naprosyn] Allergy Mild hives Unverified 01/14/20 09:12 bupivacaine Allergy Swelling/Ed Unverified 01/14/20 09:12 colby NUTS Allergy Severe Anaphylaxsi Uncoded 01/14/20 09:12 s General Stated Complaint: Urinary PATRICIA: 4 Review of Systems Constitutional Constitutional: Denies fever(s) Gastrointestinal Gastrointestinal: Denies abdominal pain Genitourinary Genitourinary: Reports as per HPI, Reports hematuria, Denies difficulty urinating, Denies dysuria, Denies penile discharge, Denies scrotal swelling and Denies testicular pain PFSH Medical History ADHD (attention deficit hyperactivity disorder) Bipolar 1 disorder Chronic low back pain Tobacco abuse Surgical History Appendectomy (08/14/16) Fracture, Closed Treatment right wrist and ankle Social History Smoking/Tobacco Use Status: Current every day Tobacco Type: cigarettes Alcohol Intake: current Alcohol Intake frequency: a few times a week Drug use: Occasionally Substance use type: marijuana Do you feel safe at home: Yes Do you feel safe in your relationship?: Yes Exam Const General: cooperative and no acute distress HENMT Mouth: moist mucous membranes Eyes Sclera: normal sclerae Resp Auscultation: clear to auscultation bilaterally, no rales, no rhonchi and no wheezes Cardio Jugular venous pressure: no JVD Rate: regular rate and not tachycardic Rhythm: regular rhythm GI Palpation: soft, not firm, no guarding, no masses, not rigid and nontender Male General Exam: Yes normal external exam Penis: normal penis Meatus: meatus normal Scrotum: scrotum normal Testes: normal Skin General skin exam: no rashes or lesions noted Neuro General: patient alert, patient awake, patient oriented x3 and tone normal Extrem General: no edema Psych Appearance: grossly normal Mental Status: mental status grossly normal Course Vital Signs Vital signs: Vital Signs Temperature 36.6 C 01/14/20 09:05 Pulse 89 01/14/20 09:05 Respiratory Rate 18 01/14/20 09:05 Blood Pressure 137/98 H 01/14/20 09:05 Pulse Oximetry 95 01/14/20 09:05 Temperature 36.6 C 01/14/20 09:05 Temperature Source Skin 01/14/20 09:05 Pulse 89 01/14/20 09:05 Respiratory Rate 18 01/14/20 09:05 Respiratory Effort Non-Labored 01/14/20 09:08 Blood Pressure 137/98 H 01/14/20 09:05 Blood Pressure Position Sitting 01/14/20 09:05 Pulse Oximetry 95 01/14/20 09:05 Oxygen Delivery Method Room Air 01/14/20 09:05 Oxygen Flow Rate 0 01/14/20 09:05 Pain Level 0 01/14/20 09:05
[2020-01-14 09:38] LABS: Bacteria Rare HPF (Negative); Epithelial Cells Negative HPF (Negative); WBC 0-2 HPF (0-5)
[2020-01-14 09:39] LABS: C & S Indicated? No; Casts Negative LPF (Negative); Crystals Few Amorphous HPF (Negative); Mucus Trace (Negative)
--- NOTE | 2020-01-16 09:48 | PDOC.ERCMPRO ---
- If Service Date Differs Date of service: 01/16/20 Time of Service: 09:48 Care Management Progress Note CM is asked by ED provider to coordinate a referral to [facility] to establish care with PCP. A review of Herman's medical chart reveals that we do not have any contact information for Herman, so CM is unable to outreach to him either by telephone or by mail. Herman was instructed to call CM at the time of his ED visit, so will await his call before sending out any referrals.
[2020-01-16 14:28] LABS: Chlamydia Result Negative (Negative); GC Result Negative (Negative)
== END 2020-01-14 10:00 | disposition home or self-care (01) ==
PROVIDERS: Emergency Provider Student in an Organized Health Care Education/Training Program
DX: R31.9 Hematuria, unspecified (principal)
CPT/HCPCS: 87491; 87591; 99282; 81003; 81015

== ENCOUNTER 2020-10-01 16:00 | Outpatient (REF) | payer MEDICAID, SELFPAY ==
[2020-10-01 18:52] LABS: HCT 46.6 % (40.0-50.0); HGB 16.1 g/dL (13.5-17.5); MCH 31.8 pg (27.0-33.0); MCHC 34.5 % (32.0-36.0); MCV 91.9 fL (80-95); MPV 9.9 fL (8.0-11.0); Platelet Count 310 10^3/uL (130-400); RBC 5.07 10^6/uL (4.36-5.78); RDW 12.1 % (11.8-14.1); RDW-SD 40.7 fL; WBC 9.02 10^3/uL (4.4-10.8)
[2020-10-01 19:09] LABS: ALT 69 U/L (16-63); AST 26 U/L (15-37); Albumin 4.1 g/dL (3.4-5.0); Alkaline Phosphatase 87 U/L (46-116); Anion Gap 10.3 mmol/L (3-11); BUN 17 mg/dL (7-18); Bilirubin, Total 0.5 mg/dL (0.2-1.0); CO2 24.7 mmol/L (21.0-32.0); CREATININE 0.9 mg/dL (0.70-1.30); Calcium 9.5 mg/dL (8.5-10.1); Chloride 103 mmol/L (98-107); Glucose 89 mg/dL (74-106); Potassium 4.6 mmol/L (3.5-5.1); Sodium 138 mmol/L (136-145)
[2020-10-01 19:21] LABS: Calculated LDL 150 mg/dL (<100); Cholesterol 220 mg/dL (<200); HDL Cholesterol 30 mg/dL (40-60); Total Protein 7.7 g/dL (6.4-8.2); Triglyceride 204 mg/dL (<150)
== END 2020-10-01 16:01 | disposition home or self-care (01) ==
LOC: NCHCN 16:00
PROVIDERS: PCP Nurse Practitioner Family; Visit Provider Nurse Practitioner Family
DX: Z13.228 Encounter for screening for other metabolic disorders (principal); Z13.220 Encounter for screening for lipoid disorders; Z00.00 Encounter for general adult medical examination without abnormal findings
CPT/HCPCS: 80053; 80061; 85027

== ENCOUNTER 2020-12-06 09:15 | Emergency (ER) | payer MEDICAID, SELFPAY ==
[2020-12-06 09:23] VITALS: BP 141/97; PULSE 105; RESP 20; TEMP 36.4; O2SAT 95
--- NOTE | 2020-12-06 09:23 | ED.GENADUL_ITS ---
Discharge Plan Disposition Patient Disposition: HOME Condition: Stable Discharge Details Clinical Impression: Sciatica Primary Care Provider: Elodia Bermeo ED Provider: Katie Stephenson Home Meds and New Rx's Prescriptions: New methocarbamol 500 mg tablet 500 mg PO Q6H PRN (Reason: muscle spasm) Qty: 14 RF: 0 prednisone 20 mg tablet See Rx Instructions .ROUTE .COMPLEX Qty: 18 RF: 0 Continued Aleve PM 220-25 mg Tablet 1 tab PO HS RF: 0 acetaminophen 500 mg Tablet 1,000 mg PO PRN PRNRF: 0 ibuprofen 600 mg Tablet 600 mg PO TID PRNRF: 0 Vyvanse 40 mg capsule 40 mg PO DAILY RF: 0 Discharge Instructions Instructions: Sciatica (ED) Additional Instructions: Alternate ice and heat to the affected area(s) several times daily for 20 minutes at a time. Alternate tylenol and motrin as needed and directed for pain. Take the oxycodone for pain not relieved with Tylenol or Motrin. Your prescriptions have been sent electronically to your pharmacy. Call the pharmacy to make sure your prescriptions are ready before pickup. Take the prescriptions as directed. Follow-up with your primary care doctor in 1 week. Return to the emergency department with any worsening or new concerning symptoms. Discharge Data Discharge Physician: Katie Stephenson Medical Decision Making 35-year-old male with history of ADHD, bipolar disorder, chronic back pain presents with left-sided lower back pain with radiation to the left leg since yesterday. Patient appears uncomfortable. His left back and buttock is tender to palpation. He has an antalgic gait. He has no focal deficits. He has an allergy to naproxen, Toradol, tramadol and codeine which causes hives. He can take ibuprofen. Presentation appears most likely consistent with sciatica. Also consider muscle strain, arthritis, disc herniation. Do not see an indication for labs or imaging at this time. History and presentation does not appear consistent with cauda equina syndrome. As patient took the bus here and does not have a ride home, will hold on any medication here in the ED other than oral steroids. We will send prescriptions electronically to his pharmacy. Patient advised to follow-up with his primary care doctor for reevaluation. Usual and customary return precautions given prior to discharge. HPI General Mode of arrival: ambulatory . Date/Time Provider Initiated Documentation: 12/06/20 09:23 . Limitations to Documentation: no limitations . Information obtained by: patient . HPI Narrative: Pt is a 35-year-old male presents for left-sided lower back pain with radiation to his left leg since yesterday. Patient has a history of chronic back pain which he states he has daily but states it is worse since yesterday. He does do a lot of heavy lifting at work but he denies any known injury. He states the pain is worse with walking and sitting but states he usually needs to stand for some relief. He denies any fever, abdominal pain, dysuria, hematuria, bowel or bladder incontinence, saddle anesthesia, leg weakness or numbness. He took 600 mg of ibuprofen and Tylenol this morning 2 hours ago without relief. Patient states he took the bus here. Related Data Home Medications Medication Instructions Recorded Confirmed Aleve PM 1 tab PO HS 01/14/20 12/06/20 Vyvanse 40 mg PO DAILY 12/06/20 12/06/20 acetaminophen 1,000 mg PO PRN PRN 12/06/20 12/06/20 ibuprofen 600 mg PO TID PRN 12/06/20 12/06/20 methocarbamol 500 mg PO Q6H PRN #14 tab 12/06/20 prednisone See Rx Instructions .ROUTE 12/06/20 .COMPLEX #18 tab Previous Rx's Medication Instructions Recorded methocarbamol 500 mg PO Q6H PRN #14 tab 12/06/20 prednisone See Rx Instructions .ROUTE 12/06/20 .COMPLEX #18 tab Allergies Allergy/AdvReac Type Severity Reaction Status Date / Time Penicillins Allergy Severe Anaphylaxsi Unverified 12/06/20 09:26 s codeine Allergy Intermediate Hives Unverified 12/06/20 09:26 ketorolac Allergy Intermediate Skin Rash Unverified 12/06/20 09:26 tramadol Allergy Intermediate hives Unverified 12/06/20 09:26 naproxen [From Naprosyn] Allergy Mild hives Unverified 12/06/20 09:26 bupivacaine Allergy Swelling/Ed Unverified 12/06/20 09:26 colby NUTS Allergy Severe Anaphylaxsi Uncoded 12/06/20 09:26 s General PATRICIA: 4 Review of Systems All systems reviewed & are unremarkable except as noted in HPI and below Constitutional Constitutional: Reports as per HPI, Denies chills and Denies fever(s) Eyes Eyes: Denies blurry vision ENT Ears, Nose, Mouth, and Throat: Denies dizziness, Denies sore throat and Denies throat swelling Cardiovascular Cardiovascular: Denies chest pain and Denies dyspnea Respiratory Respiratory: Denies cough and Denies dyspnea Gastrointestinal Gastrointestinal: Denies abdominal pain, Denies diarrhea and Denies vomiting Genitourinary Genitourinary: Denies hematuria and Denies dysuria Musculoskeletal Musculoskeletal: Reports back pain and Denies numbness Integumentary/Breasts Skin/Breast: Denies lesions and Denies rash Neurologic Neurologic: Denies dizziness, Denies localized weakness and Denies numbness Allergic/Immunologic Allergic/Immunologic: Denies throat swelling [facility] Medical History (Updated 12/06/20 @ 09:57 by Katie Stephenson DO) ADHD (attention deficit hyperactivity disorder) Bipolar 1 disorder Chronic low back pain Tobacco abuse Surgical History Appendectomy (08/14/16) Fracture, Closed Treatment right wrist and ankle Social History Smoking/Tobacco Use Status: Current every day Tobacco Type: cigarettes Smoking risk assessment performed?: Yes Alcohol Intake: current Alcohol Intake frequency: a few times a week Drug use: Daily Substance use type: marijuana Do you feel safe at home: Yes Do you feel safe in your relationship?: Yes Exam Const General: cooperative, uncomfortable and no acute distress Orientation: alert, awake and oriented x3 HENMT Head: normal to inspection Face and sinus: normal facial exam Eyes General: appearance normal, both eyes and all related structures EOM: EOM intact bilaterally Neck Neck: normal visual inspection Lymphatic: no lymphadenopathy noted Chest Chest: normal inspection of the chest and no tenderness Resp Effort & Inspection: normal respiratory effort and able to speak in complete sentences Auscultation: clear to auscultation bilaterally Cardio Rate: regular rate Rhythm: regular rhythm GI Inspection: normal to inspection Palpation: soft, not firm, not rigid and nontender Auscultation: normal bowel sounds Back/Spine/Pelvis Thoracic/Lumbar Spine: thoracic and lumbar spine normal to inspection, straight leg raise negative bilaterally, paraspinal tenderness (L side), No thoracic spinal tenderness and lumbar spinal tenderness Skin General skin exam: no rashes or lesions noted Neuro General: patient alert, patient awake and patient oriented x3 Cognition: normal cognition Speech: speech normal Motor: muscle tone normal throughout Sensory Exam: no sensory deficits noted Extrem General: normal to inspection, full ROM, capillary refill normal, no calf tenderness bilaterally and no edema Psych Appearance: grossly normal Mental Status: mental status grossly normal Speech and Movement: speech and movement normal Affect: normal affect
[2020-12-06] MEDS: predniSONE 20 MG TAB 60 MG PO (09:50)
== END 2020-12-06 10:09 | disposition home or self-care (01) ==
PROVIDERS: Emergency Provider Physician Assistant; PCP Nurse Practitioner Family
DX: M54.32 Sciatica, left side (principal)
CPT/HCPCS: 99283; J7512

== ENCOUNTER 2021-04-03 09:43 | Emergency (ER) | payer MEDICAID, SELFPAY ==
[2021-04-03 10:03] VITALS: BP 145/97; PULSE 118; RESP 18; TEMP 36.6; O2SAT 98
--- NOTE | 2021-04-05 09:00 | ED.GENADUL_ITS ---
Discharge Plan Disposition Patient Disposition: HOME Condition: Stable Discharge Details Clinical Impression: Pain, dental Primary Care Provider: Elodia Bermeo ED Provider: Ute Lewis Home Meds and New Rx's Prescriptions: New penicillin V potassium 500 mg tablet 500 mg PO QID Qty: 40 RF: 0 Continued Aleve PM 220-25 mg Tablet 1 tab PO HS RF: 0 acetaminophen 500 mg Tablet 1,000 mg PO PRN PRNRF: 0 ibuprofen 600 mg Tablet 600 mg PO TID PRNRF: 0 Vyvanse 40 mg capsule 70 mg PO DAILY RF: 0 Discharge Instructions Instructions: Toothache (ED) Additional Instructions: Please follow-up with your dentist, I have called Dr. Avila's office the number is [phone], they are able to see you in the office tomorrow, call as soon as you leave the emergency room and they will likely be able to see you tomorrow, I have confirmed this with the office staff Take Tylenol 650 mg every 4-6 hours, take ibuprofen 600 mg every 8 hours Please return should you develop fever, difficulty swallowing, facial swelling, or with any new or worsening complaints The most important thing for you right now to follow-up with the dentist Discharge Data Discharge Date/Time-TO BE ENTERED AT DEPARTURE: 04/03/21 10:48 Medical Decision Making Patient is tachycardic, afebrile, nontoxic, alert, oriented, of decisional capacity I did offer patient a dental block, he has declined this I do not feel comfortable nor does this pain necessitate opiate analgesia He does not have evidence of deep space infection I also contacted patient's dentist in [place], and patient is able to be evaluated tomorrow, he is instructed to call this provider for evaluation They also tell me that patient has not actually called the group once to establish care He is placed on antibiotics, penicillin prescription supplied Discharged home in stable condition He is tachycardic, he has been tachycardic on several other occasions, this is reassessed at 112 He is not complaining of chest pain or shortness of breath is otherwise asymptomatic in terms of this He is afebrile at this time He is encouraged to follow-up with primary care physician in the outpatient setting regarding blood pressure Medical Records Medical records reviewed: Yes I reviewed the patient's medical records. HPI General Mode of arrival: ambulatory . Date/Time Provider Initiated Documentation: 04/03/21 10:17 . Limitations to Documentation: no limitations . Information obtained by: patient . HPI Narrative: This 36-year-old male with history of ADHD presents with reports of left lower dental pain. He states he had this pain for several months. He states he has been calling his dentist daily to get an appointment. He states his neck taking ibuprofen and Tylenol. He states he cracked the tooth several months ago. He denies any chest pain, shortness of breath, difficulty swallowing. patient state he denies any additional complaints at this time. Related Data Home Medications Medication Instructions Recorded Confirmed Aleve PM 1 tab PO HS 01/14/20 04/03/21 Vyvanse 70 mg PO DAILY 12/06/20 04/03/21 acetaminophen 1,000 mg PO PRN PRN 12/06/20 04/03/21 ibuprofen 600 mg PO TID PRN 12/06/20 04/03/21 penicillin V potassium 500 mg PO QID #40 tab 04/03/21 Previous Rx's Medication Instructions Recorded penicillin V potassium 500 mg PO QID #40 tab 04/03/21 Allergies Allergy/AdvReac Type Severity Reaction Status Date / Time Penicillins Allergy Severe Anaphylaxsi Unverified 04/03/21 10:10 s codeine Allergy Intermediate Hives Unverified 04/03/21 10:10 ketorolac Allergy Intermediate Skin Rash Unverified 04/03/21 10:10 tramadol Allergy Intermediate hives Unverified 04/03/21 10:10 naproxen [From Naprosyn] Allergy Mild hives Unverified 04/03/21 10:10 bupivacaine Allergy Swelling/Ed Unverified 04/03/21 10:10 colby NUTS Allergy Severe Anaphylaxsi Uncoded 04/03/21 10:10 s General Stated Complaint: DentalOral PATRICIA: 5 Review of Systems All systems reviewed & are unremarkable except as noted in HPI and below PFSH Medical History (Updated 04/03/21 @ 10:39 by FRANTZ Wadsworth) ADHD (attention deficit hyperactivity disorder) Bipolar 1 disorder Chronic low back pain Tobacco abuse Surgical History Appendectomy (08/14/16) Fracture, Closed Treatment right wrist and ankle Social History Smoking/Tobacco Use Status: Current every day Tobacco Type: cigarettes Smoking risk assessment performed?: Yes Alcohol Intake: current Alcohol Intake frequency: a few times a week Drug use: Daily Substance use type: marijuana Do you feel safe at home: Yes Do you feel safe in your relationship?: Yes Exam Const General: cooperative Orientation: alert and oriented x3 HENMT Head: normal to inspection Teeth image: 1. Widespread dental decay, fracture noted, uvula midline, no evidence of deep space infection, no trismus, maintaining secretions Neck Other: No stridor Resp Effort & Inspection: normal respiratory effort Cardio Other: No murmur Skin General skin exam: no rashes or lesions noted Neuro General: patient alert and patient oriented x3 Course Vital Signs Vital signs: Vital Signs Temperature 36.6 C 04/03/21 10:03 Pulse 118 H 04/03/21 10:03 Respiratory Rate 18 04/03/21 10:03 Blood Pressure 145/97 H 04/03/21 10:03 Pulse Oximetry 98 04/03/21 10:03 Temperature 36.6 C 04/03/21 10:03 Temperature Source Tympanic 04/03/21 10:03 Pulse 118 H 04/03/21 10:03 Respiratory Rate 18 04/03/21 10:03 Respiratory Effort 04/03/21 10:09 Blood Pressure 145/97 H 04/03/21 10:03 Pulse Oximetry 98 04/03/21 10:03 Oxygen Delivery Method Room Air 04/03/21 10:03 Oxygen Flow Rate 0 04/03/21 10:03 Pain Level 9 04/03/21 10:03
== END 2021-04-03 10:48 | disposition home or self-care (01) ==
PROVIDERS: Emergency Provider Physician Assistant; PCP Nurse Practitioner Family
DX: R68.84 Jaw pain (principal); R00.0 Tachycardia, unspecified
CPT/HCPCS: 99283

== ENCOUNTER 2021-04-04 00:50 | Outpatient (CLI) | payer MEDICAID, SELFPAY ==
--- NOTE | 2021-04-04 | DI.RAD_ITS ---
Exam(s) XR LUMBAR SPINE COMPLETE EXAM: XR LUMBAR SPINE COMPLETE CLINICAL HISTORY: CHRONIC LOW BACK PAIN, M54.5. TECHNIQUE: 2D digital imaging was performed. COMPARISON: CR XR lumbar spine complete from 09/12/2018 FINDINGS: No evidence of fracture or listhesis. No pars defects. No disc space narrowing. No scoliosis. Fac et joints appear unremarkable. Sacroiliac joints appear unremarkable. No osseous lesions. Bone density normal. IMPRESSION: No significant radiographic findings. No significant change compared to the prior study of 2019. DATA REPOSITORY: RADIATION DOSE DELIVERED:
== END 2021-04-04 01:10 ==
PROVIDERS: PCP Nurse Practitioner Family; Visit Provider Nurse Practitioner Family
DX: M54.5 Low back pain (principal)
CPT/HCPCS: 72110

== ENCOUNTER 2021-04-30 08:37 | Emergency (ER) | payer MEDICAID, SELFPAY ==
[2021-04-30 08:42] VITALS: BP 127/103; PULSE 103; RESP 18; TEMP 36.6; O2SAT 100
--- NOTE | 2021-04-30 08:57 | ED.GENADUL_ITS ---
Discharge Plan Disposition Patient Disposition: HOME Condition: Improving Discharge Details Clinical Impression: Cellulitis of right anterior lower leg Primary Care Provider: Elodia Bermeo ED Provider: Christiano Vogt Home Meds and New Rx's Prescriptions: New clindamycin HCl 300 mg capsule 300 mg PO TID 10 Days Qty: 30 RF: 0 hydrocodone-acetaminophen 5-325 mg tablet 1 tab PO Q8H PRN (Reason: pain) Qty: 7 RF: 0 Continued acetaminophen 500 mg Tablet 1,000 mg PO PRN PRNRF: 0 Vyvanse 40 mg capsule 70 mg PO DAILY RF: 0 Discontinued Aleve PM 220-25 mg Tablet 1 tab PO HS RF: 0 penicillin V potassium 500 mg tablet 500 mg PO QID Qty: 40 RF: 0 No Action ibuprofen 600 mg Tablet 600 mg PO TID PRNRF: 0 Discharge Instructions Instructions: Cellulitis (ED) Additional Instructions: Please follow-up in orthopedic clinic. You were seen by the orthopedic service in consultation today. Call the office at [phone] for an appointment time. Elevate the leg above the level of the heart to reduce pain and swelling. May be weightbearing as tolerated with use of immobilization boot as needed for comfort. Take antibiotics as prescribed. May you see prescribed hydrocodone with acetaminophen as needed for severe or breakthrough pain. You may alternate this with acetaminophen as well, but not to exceed 2000 mg of acetaminophen per day. Return to the ER for worsening, the development of fever, or any other acute concerns. Referrals: Elodia Bermeo [Primary Care Provider] - Medical Decision Making This is a 36-year-old male who presents from home with 2 days of right lower extremity pain and swelling. Has had previous ORIF of that ankle. Pain has increased with movement of the joint and he is now using a crutch. He denies recent fever. Patient has a history of some chronic pain, somewhat curious allergy profile. Concern for cellulitis versus septic arthritis. Patient IV access established, screening labs and blood culture obtained. Given oral analgesia, fluid bolus. X-ray obtained. Patient states he has had throat closing/severe allergy with use of penicillin as well seen recently for dental infection and prescribed penicillin, he did not take this but states the dental infection is improved. Following blood cultures, patient given loading dose of IV clindamycin. Patient's x-ray reveals soft tissue swelling of the ankle, no bony destructive lesion. Labs noted elevated white blood cell count of 14, normal lactate, CRP of 3.3, normal sed rate. Patient discussed with and seen by orthopedic service. No evidence of infected joint at this time. We will continue antibiotics for cellulitis. Will mobilize patient for comfort. We will have him follow-up in clinic. He is stable and appropriate discharge at this time. He and I discussed pain management which he states has been a significant issue for him. I do feel a very small number of strong oral analgesics is appropriate. Patient asked that we CC primary care on this note to inform them of such. HPI General Mode of arrival: ambulatory . Date/Time Provider Initiated Documentation: 04/30/21 08:48 . Limitations to Documentation: no limitations . Information obtained by: patient . History of Present Illness 36 year old M presents to the emergency department with the chief complaint of Right ankle pain, swelling, redness, described as moderate, Quality is described as dull and constant, and is localized to the right and lower extremity. Patient started experiencing this day(s) and it has been constant. Rest improves symptom(s), Movement worsens symptoms . Patient notes denies fever/chills, loss of appetite and nausea/vomiting. Patient did receive the following treatments prior to arrival, other (Using 1 crutch) Related Data Home Medications Medication Instructions Recorded Confirmed Vyvanse 70 mg PO DAILY 12/06/20 04/30/21 acetaminophen 1,000 mg PO PRN PRN 12/06/20 04/03/21 ibuprofen 600 mg PO TID PRN 12/06/20 04/30/21 clindamycin HCl 300 mg PO TID 10 Days #30 cap 04/30/21 hydrocodone-acetaminophen 1 tab PO Q8H PRN #7 tab 04/30/21 Previous Rx's Medication Instructions Recorded clindamycin HCl 300 mg PO TID 10 Days #30 cap 04/30/21 hydrocodone-acetaminophen 1 tab PO Q8H PRN #7 tab 04/30/21 Allergies Allergy/AdvReac Type Severity Reaction Status Date / Time Penicillins Allergy Severe Anaphylaxsi Unverified 04/30/21 08:46 s codeine Allergy Intermediate Hives Unverified 04/30/21 08:46 ketorolac Allergy Intermediate Skin Rash Unverified 04/30/21 08:46 tramadol Allergy Intermediate hives Unverified 04/30/21 08:46 naproxen [From Naprosyn] Allergy Mild hives Unverified 04/30/21 08:46 bupivacaine Allergy Swelling/Ed Unverified 04/30/21 08:46 colby NUTS Allergy Severe Anaphylaxsi Uncoded 04/30/21 08:46 s General Stated Complaint: Cellulitis PATRICIA: 3 Review of Systems Narrative: Denies other recent illness. 6 systems reviewed and otherwise negative [facility] Medical History (Updated 04/30/21 @ 10:21 by Christiano Vogt MD) ADHD (attention deficit hyperactivity disorder) Bipolar 1 disorder Chronic low back pain Tobacco abuse Surgical History Appendectomy (08/14/16) Fracture, Closed Treatment right wrist and ankle Social History Smoking/Tobacco Use Status: Current every day Tobacco Type: cigarettes Smoking risk assessment performed?: Yes Alcohol Intake: current Alcohol Intake frequency: a few times a month Drug use: Daily Substance use type: marijuana Do you feel safe at home: Yes Do you feel safe in your relationship?: Yes Exam Narrative Exam Narrative: GEN: awake, alert, oriented 3. Pleasant, well groomed, interactive. HEAD: Normocephalic, atraumatic ENT: Mucous membranes moist, oropharynx unremarkable, External ear exam unremarkable EYES: PERRL, EOMI NECK: Full ROM, no DEIRDRE, no menigismus CHEST/RESP: Nontender, clear to auscultation bilateral, no wheeze/rhonchi/rales CARDIOVASCULAR: RRR, no murmur, rub iza. 2+ Rad pulse bilateral ABDOMEN: Soft, nontender, no mass. +Bowel sounds EXT: Full ROM, healed surgical scars right medial and lateral ankle. Overlying right dorsum of the foot and lateral distal third of the lower extremity is tender, erythematous, blanching to touch. Some pain with movement of the joint. No cords appreciated. Neuro: Grossly normal neurologic exam, conversant, interactive. Psych: Speech fluent, thoughts congruent, affect normal Course Vital Signs Vital signs: Vital Signs Temperature 36.6 C 04/30/21 08:42 Pulse 103 H 04/30/21 08:42 Respiratory Rate 18 04/30/21 08:42 Blood Pressure 127/103 H 04/30/21 08:42 Pulse Oximetry 100 04/30/21 08:42 Temperature 36.6 C 04/30/21 08:42 Temperature Source Temporal Artery Scan 04/30/21 08:42 Pulse 103 H 04/30/21 08:42 Respiratory Rate 18 04/30/21 08:42 Respiratory Effort Non-Labored 04/30/21 08:48 Blood Pressure 127/103 H 04/30/21 08:42 Blood Pressure Position Sitting 04/30/21 08:42 Pulse Oximetry 100 04/30/21 08:42 Oxygen Delivery Method Room Air 04/30/21 08:42 Oxygen Flow Rate 0 04/30/21 08:42 Pain Level 9 04/30/21 08:42
[2021-04-30 09:09] LABS: Abs Immature Grans 0.05 10^3/uL (0.0-0.06); Absolute Basophil Count 0.03 10^3/uL (0.0-0.2); Absolute Eosinophil Count 0.25 10^3/uL (0.0-0.7); Absolute Lymphocyte Count 3.73 10^3/uL (1.2-3.4); Basophils % 0.2; Eosinophils % 1.7; HCT 42.6 % (40.0-50.0); HGB 14.2 g/dL (13.5-17.5); Immature Grans % 0.3; Lymphocytes % 25.7; MCH 30.7 pg (27.0-33.0); MCHC 33.3 % (32.0-36.0); MCV 92.2 fL (80-95); MPV 8.7 fL (8.0-11.0); Monocytes % 9.9; Neutrophils % 62.2; Nucleated RBC 0 %; Platelet Count 286 10^3/uL (130-400); RBC 4.62 10^6/uL (4.36-5.78); RDW 12.3 % (11.8-14.1); RDW-SD 41.7 fL
[2021-04-30 09:11] LABS: Absolute Monocyte Count 1.44 10^3/uL (0.1-0.8); Absolute Neutrophil Count 9.02 10^3/uL (1.2-6.7); ESR 13 mm/hr (0-15)
[2021-04-30 09:17] LABS: Lactate 0.7 mmol/L (0.9-1.7)
--- NOTE | 2021-04-30 09:26 | DI.RAD_ITS ---
Exam(s) XR ANKLE RT COMPLETE EXAM: XR ANKLE RT COMPLETE CLINICAL HISTORY: prev ORIF, now red, painful. TECHNIQUE: 2D digital imaging was performed of the right ankle. Three images were obtained. AP, la teral and oblique views were obtained. COMPARISON: No exams were available for comparison FINDINGS: BONES: No acute fracture is present. No bony destructive lesion is seen. Old postsurgical changes se en in the distal tibia and fibula. JOINTS: The ankle mortise is normally aligned. SOFT TISSUE: Soft tissue swelling of the ankle. IMPRESSION: 1. No acute fracture or dislocation. 2. Soft tissue swelling of the ankle. 3. No evidence to suggest osteomyelitis. DATA REPOSITORY: RADIATION DOSE DELIVERED:
[2021-04-30 09:30] LABS: ALT 81 U/L (16-63); AST 32 U/L (15-37); Albumin 3.7 g/dL (3.4-5.0); Alkaline Phosphatase 97 U/L (46-116); Anion Gap 8.9 mmol/L (3-11); BUN 14 mg/dL (7-18); Bilirubin, Total 0.4 mg/dL (0.2-1.0); C-Reactive Protein 3.31 mg/dL (0.0-0.3); CO2 26.1 mmol/L (21.0-32.0); Calcium 8.9 mg/dL (8.5-10.1); Chloride 103 mmol/L (98-107); Glucose 99 mg/dL (74-106); Potassium 3.9 mmol/L (3.5-5.1); Sodium 138 mmol/L (136-145); Total Protein 7.6 g/dL (6.4-8.2)
[2021-04-30] MEDS: Normal Saline 1,000 ML 1000 ML IV (09:32)
[2021-04-30] MEDS: CLINDAMYCIN 900 MG/50 ML BAG 50 MG IVPB (10:06)
--- NOTE | 2021-04-30 13:49 | W.ORTHOCONSU ---
Date of service: 04/30/21 Time of Service: 10:00 History of Present Illness History of Present Illness Chief Complaint: Right Ankle Pain Narrative: Herman presents to the ED with 3 days of right ankle redness and swelling. Reports a history of cellulitis on this ankle. Notes that redness errupted 3 days ago and his ankle has become increasingly tender to touch or weight-bear. He has started using a crutch to assist his walking and reports his outlining the area of redness on his ankle. He has a history of a right distal fibula ORIF on this ankle with subsequent hardware removal at [facility] after falling from a ladder. He is unsure of the performing doctor or when this was completed but does recall it was when he was in his 20s. He denies intravenous drug use, recent fevers, history of gout, abrasions to the right ankle or inability to move his ankle. Consult Reason questionable septic joint Assessment and Plan Assessment and plan (1) Cellulitis of right anterior lower leg: Status: Acute Assessment and plan: Herman is a 36 year old male with 3 days of right ankle cellulitis. Physical exam and symptoms are consistent with cellulitis and I do not think this is a septic joint. There are no punctures, wounds, abrasions or abcesses. Recommend continued antibiotic therapy and ibuprofen as needed for acute pain. Apply ankle brace as tolerated and continue to weight bear as tolerated. Discussed findings with Dr. Vogt in ED and agreeable to treatment plan. Review of Systems All systems reviewed & are unremarkable except as noted in HPI and below PFSH Medical History (Updated 04/30/21 @ 10:21 by Christiano Vogt MD) ADHD (attention deficit hyperactivity disorder) Bipolar 1 disorder Chronic low back pain Tobacco abuse Surgical History Appendectomy (08/14/16) Fracture, Closed Treatment right wrist and ankle Social History Smoking/Tobacco Use Status: Current every day Tobacco Type: cigarettes Smoking risk assessment performed?: Yes Alcohol Intake: current Alcohol Intake frequency: a few times a month Drug use: Daily Substance use type: marijuana Do you feel safe at home: Yes Do you feel safe in your relationship?: Yes Exam Const General: cooperative, healthy appearing and comfortable Nutritional Appearance: average body habitus Orientation: alert and awake Resp Effort & Inspection: normal respiratory effort, able to speak in complete sentences, no audible wheezes, no grunting, not labored and no nasal flaring Neuro General: patient alert, patient awake and moves all extremities Speech: speech normal Extrem Other: Ankle exam, RIGHT Narrative: There is lateral erythema and edema over the lateral malleolus that extends distally to the anterior midfoot and proximally to the distal anterior calf. Does not extend to the medial malleolus nor posteriorly. Compartments are soft however, tender over area of erythema. There is no joint effusion, passive ROM is intact and not overly irritable. There are no punctures, wounds or abrasions. No drainage or abscess. No fluctuance or superficial fluid collections. Skin is blanchable Achilles tendon is nontender. PROM: Full Lateral TTP: significantly tender with soft tissue edema Medial TTP: None, no edema present Strength: 4-/5 limited due to pain Syndesmotic squeeze test: Negative Anterior seamless tube drawer dorsiflexion: Stable Anterior seamless tube drawer plantarflexion: Stable Psych Appearance: grossly normal Mental Status: mental status grossly normal Speech and Movement: speech and movement normal Affect: normal affect Attitude: cooperative Thought Process: normal Thought Content: normal Insight: insight good Judgment: judgment good Results Last Vital Signs Temp 97.9 F 04/30/21 08:42 Pulse 103 H 04/30/21 08:42 Resp 18 04/30/21 08:42 BP 127/103 H 04/30/21 08:42 Pulse Ox 100 04/30/21 08:42 Labs Result diagrams: 04/30/21 09:00 04/30/21 09:00 Labs: Laboratory Results - last 24 hr 04/30/21 04/30/21 04/30/21 09:00 09:00 09:00 WBC RBC Hgb Hct MCV MCH MCHC RDW Plt Count MPV Immature Gran % Neutrophils % Lymphocytes % Monocytes % Eosinophils % Basophils % Nucleated RBC % Absolute Neutrophils Absolute Lymphocytes Absolute Monocytes Absolute Eosinophils Absolute Basophils ESR 13 VBG Lactate 0.7 L Sodium 138 Potassium 3.9 Chloride 103 Carbon Dioxide 26.1 Anion Gap 8.9 BUN 14 Creatinine 1.0 Estimated GFR/1.73 m2 >= 60.00 Glucose 99 Calcium 8.9 Total Bilirubin 0.4 AST 32 ALT 81 H Alkaline Phosphatase 97 C-Reactive Protein 3.31 H Total Protein 7.6 Albumin 3.7 04/30/21 09:00 WBC 14.50 H RBC 4.62 Hgb 14.2 Hct 42.6 MCV 92.2 MCH 30.7 MCHC 33.3 RDW 12.3 Plt Count 286 MPV 8.7 Immature Gran % 0.3 Neutrophils % 62.2 Lymphocytes % 25.7 Monocytes % 9.9 Eosinophils % 1.7 Basophils % 0.2 Nucleated RBC % 0 Absolute Neutrophils 9.02 H Absolute Lymphocytes 3.73 H Absolute Monocytes 1.44 H Absolute Eosinophils 0.25 Absolute Basophils 0.03 ESR VBG Lactate Sodium Potassium Chloride Carbon Dioxide Anion Gap BUN Creatinine Estimated GFR/1.73 m2 Glucose Calcium Total Bilirubin AST ALT Alkaline Phosphatase C-Reactive Protein Total Protein Albumin Imaging Imaging Studies: Xray of the right ankle reviewed: There are signs of old orthopedic ORIF in distal fibula, bones intact without acute or chronic fractures noted. Spurring of the tibiotalar joint. Ankle mortise is aligned. There does not appear to be a joint effusion. No other acute or chronic bony abnormalities noted.
== END 2021-04-30 11:15 | disposition home or self-care (01) ==
PROVIDERS: Emergency Provider Emergency Medicine; PCP Nurse Practitioner Family
DX: L03.115 Cellulitis of right lower limb (principal)
CPT/HCPCS: 36415; 80053; 85652; 87040; 96361; 96365; 99284; 73610; 83605; 85025; 86140; J3490

== ENCOUNTER 2021-05-16 12:07 | Emergency (ER) | payer MEDICAID, SELFPAY ==
[2021-05-16 12:33] VITALS: BP 149/95; PULSE 99; RESP 16; TEMP 36.4; O2SAT 97
--- NOTE | 2021-05-16 13:00 | DI.RAD_ITS ---
Exam(s) XR SHOULDER LT COMPLETE 2+V EXAM: XR SHOULDER LT COMPLETE 2+V CLINICAL HISTORY: pain left shoulder after lifting. TECHNIQUE: 2D digital imaging was performed. COMPARISON: None FINDINGS: Four views of the left shoulder reveal no evidence of fracture or dislocation or soft tissue calcific ations. No degenerative changes evident. There is an area of lucency in the greater tuberosity, most evident on the Grashey view, possibly sig nificant. There is no cortical breakthrough. IMPRESSION: No fractures or degenerative changes., there is subtle area of lucency in the greater tuberosity. Ca nnot exclude the possibly of a bone lesion at this location. DATA REPOSITORY: RADIATION DOSE DELIVERED:
[2021-05-16] MEDS: Acetaminophen 325 MG TAB 650 MG PO (13:20)
--- NOTE | 2021-05-16 13:39 | ED.GENADUL_ITS ---
Discharge Plan Disposition Patient Disposition: HOME Condition: Stable Discharge Details Clinical Impression: Left shoulder strain Primary Care Provider: Elodia Bermeo ED Provider: Ute Lewis Home Meds and New Rx's Prescriptions: New cyclobenzaprine 10 mg tablet 10 mg PO TID PRNQty: 10 RF: 0 Continued hydrocodone-acetaminophen 5-325 mg tablet 1 tab PO Q8H PRN (Reason: pain) Qty: 7 RF: 0 acetaminophen 500 mg Tablet 1,000 mg PO PRN PRNRF: 0 ibuprofen 600 mg Tablet 600 mg PO TID PRNRF: 0 Vyvanse 40 mg capsule 70 mg PO DAILY RF: 0 Discharge Instructions Instructions: Shoulder Sprain (ED), Shoulder Pain (ED) Additional Instructions: tylenol as needed for pain flexeril as needed for musculosketal pain no heavy lifting or repetitive motion pt follow-up tomorrow follow-up with orthopedics regarding bone lesion Referrals: Elodia Bermeo [Primary Care Provider] - Sánchez Dimas MD [ [facility] STAFF PHYSICIAN] - Discharge Data Discharge Date/Time-TO BE ENTERED AT DEPARTURE: 05/16/21 14:00 Medical Decision Making X-ray shows lucency will need follow-up on left shoulder Will refer to orthopedics Return precautions and patient expressed understanding Discharged home in sling with frozen shoulder precautions discussed Tylenol as needed for pain Medical Records Medical records reviewed: Yes I reviewed the patient's medical records. Lab Data Lab results reviewed: Yes I reviewed the patient's lab results. HPI General Mode of arrival: ambulatory . Date/Time Provider Initiated Documentation: 05/16/21 12:48 . Limitations to Documentation: no limitations . Information obtained by: patient . HPI Narrative: This 36-year-old male presents with left shoulder pain. Patient states that he was carrying heavy of table 3 days ago and has had pain since that time. He states he presents secondary to persistent pain and being unable to sleep at night. He has been taking Vicodin and Tylenol with relief of his pain. He states he took 1 dose of Vicodin last evening. He denies any additional trauma. He denies any neck pa in, chest pain, shortness of breath, or weakness to extremities. He states he is unable to take ibuprofen secondary to anaphylaxis Related Data Home Medications Medication Instructions Recorded Confirmed Vyvanse 70 mg PO DAILY 12/06/20 05/16/21 acetaminophen 1,000 mg PO PRN PRN 12/06/20 05/16/21 ibuprofen 600 mg PO TID PRN 12/06/20 05/16/21 hydrocodone-acetaminophen 1 tab PO Q8H PRN #7 tab 04/30/21 05/16/21 cyclobenzaprine 10 mg PO TID PRN #10 tab 05/16/21 Previous Rx's Medication Instructions Recorded hydrocodone-acetaminophen 1 tab PO Q8H PRN #7 tab 04/30/21 cyclobenzaprine 10 mg PO TID PRN #10 tab 05/16/21 Allergies Allergy/AdvReac Type Severity Reaction Status Date / Time Penicillins Allergy Severe Anaphylaxsi Unverified 05/16/21 12:38 s codeine Allergy Intermediate Hives Unverified 05/16/21 12:38 ketorolac Allergy Intermediate Skin Rash Unverified 05/16/21 12:38 tramadol Allergy Intermediate hives Unverified 05/16/21 12:38 naproxen [From Naprosyn] Allergy Mild hives Unverified 05/16/21 12:38 bupivacaine Allergy Swelling/Ed Unverified 05/16/21 12:38 colby NUTS Allergy Severe Anaphylaxsi Uncoded 05/16/21 12:38 s General Stated Complaint: Orthopedic PATRICIA: 4 Review of Systems All systems reviewed & are unremarkable except as noted in HPI and below PFSH Medical History (Updated 05/16/21 @ 13:48 by FRANTZ Wadsworth) ADHD (attention deficit hyperactivity disorder) Bipolar 1 disorder Chronic low back pain Tobacco abuse Surgical History Appendectomy (08/14/16) Fracture, Closed Treatment right wrist and ankle Social History Smoking/Tobacco Use Status: Current every day Tobacco Type: cigarettes Smoking risk assessment performed?: Yes Alcohol Intake: current Alcohol Intake frequency: 0-2 drinks per day Alcohol type: beer Drug use: Daily Substance use type: marijuana Do you feel safe at home: Yes Do you feel safe in your relationship?: Yes Exam Const General: cooperative and comfortable Neck Other: More used a walkerno midline tenderness Resp Effort & Inspection: normal respiratory effort Auscultation: clear to auscultation bilaterally Cardio Rate: regular rate Rhythm: regular rhythm Extrem Shoulder/upper arm images: 1. tenderness with palpation decreased abduction and external rotation distal pulses intact Course Vital Signs Vital signs: Vital Signs Temperature 36.4 C L 05/16/21 12:33 Pulse 99 H 05/16/21 12:33 Respiratory Rate 16 05/16/21 12:33 Blood Pressure 149/95 H 05/16/21 12:33 Pulse Oximetry 97 05/16/21 12:33 Temperature 36.4 C L 05/16/21 12:33 Temperature Source Skin 05/16/21 12:33 Pulse 99 H 05/16/21 12:33 Respiratory Rate 16 05/16/21 12:33 Respiratory Effort Non-Labored 05/16/21 12:33 Blood Pressure 149/95 H 05/16/21 12:33 Blood Pressure Position Sitting 05/16/21 12:33 Pulse Oximetry 97 05/16/21 12:33 Oxygen Delivery Method Room Air 05/16/21 12:33 Oxygen Flow Rate 0 05/16/21 12:33 Pain Level 7 05/16/21 13:20 PAWSS Have you Been Recently Intoxicated or Drunk Within the Last 30 days?: No Have you Ever Experienced Previous Episodes of Alcohol Withdrawal?: No Have you ever Experienced Withdrawal Seizures?: No Have you ever Experienced Delirium Tremens(DT)s?: No Have you ever undergone Alcohol Rehabilitation Treatment (i.e, inpt ot outpatient treatment programs)?: No Have you ever Experienced Blackouts?: No Have you ever Combined Alcohol with other Downers within the last 90 days?: No Have you ever Combined Alcohol with any other Substance of Abuse during the last 90 days?: No Positive Blood Alcohol level on Presentation? [PCS.BAL]: No Evidence of Increased Autonomic Activity (i.e. HR>120, tremor, sweating, agitation, nausea)?: No Result: 0
== END 2021-05-16 14:00 | disposition home or self-care (01) ==
PROVIDERS: Emergency Provider Physician Assistant; PCP Nurse Practitioner Family
DX: S46.812A Strain of other muscles, fascia and tendons at shoulder and upper arm level, left arm, initial encounter (principal); X50.0XXA Overexertion from strenuous movement or load, initial encounter
CPT/HCPCS: 99283; 73030

== ENCOUNTER 2021-05-18 14:03 | Emergency (ER) | payer MEDICAID, SELFPAY ==
[2021-05-18 14:09] VITALS: BP 173/100; PULSE 102; RESP 18; TEMP 36.8; O2SAT 98
--- NOTE | 2021-05-18 14:28 | ED.GENADUL_ITS ---
Discharge Plan Disposition Patient Disposition: HOME Condition: Stable Discharge Details Clinical Impression: Left shoulder strain Primary Care Provider: Elodia Bermeo ED Provider: Rena Forte Home Meds and New Rx's Prescriptions: New lidocaine [Lidoderm] 5 % adhesive patch,medicated 1 patch topical DAILY PRNQty: 30 RF: 0 Continued hydrocodone-acetaminophen 5-325 mg tablet 1 tab PO Q8H PRN (Reason: pain) Qty: 7 RF: 0 acetaminophen 500 mg Tablet 1,000 mg PO PRN PRNRF: 0 ibuprofen 600 mg Tablet 600 mg PO TID PRNRF: 0 Vyvanse 40 mg capsule 70 mg PO DAILY RF: 0 cyclobenzaprine 10 mg tablet 10 mg PO TID PRNQty: 10 RF: 0 Discharge Instructions Instructions: Shoulder Sprain (ED) Additional Instructions: Please continue to encourage range of motion. Please begin the nonweightbearing exercises as discussed. Please continue with the Tylenol, ibuprofen as needed for discomfort. You may continue with the Flexeril previously prescribed. You may try topical options such as lidocaine patches for local discomfort. Please follow-up with orthopedics for reevaluation and further imaging. If you develop any new or worsening symptoms please seek care urgently once again. Referrals: Elodia Bermeo [Primary Care Provider] - Discharge Data Discharge Date/Time-TO BE ENTERED AT DEPARTURE: 05/18/21 15:46 Medical Decision Making Patient is a 36-year-old [id number] male presenting today with chief complaint of left shoulder pain. Patient was seen here 2 days ago at which time he was diagnosed with a left sprain. Patient was advised to use Tylenol to help discomfort. Was prescribed Flexeril to help with muscle spasm. Advised no heavy lifting. Patient was placed in a sling. He states that since being discharged his pain has persisted. Patient had previously been prescribed Vicodin and has run out of this. Concern that his pain continues to be elevated and is here for something to help with comfort. Images were obtained. X-ray of the shoulder was concerning for a bony lucency. Patient was referred to orthopedics for continued management and follow-up. I did review the x-ray previously obtained and also spoke with radiology reg jules recommended follow-up. They recommended follow-up with MRI. Patient can have a completed through orthopedics and I did relay this to the patient. Patient on exam, patient appears nontoxic. He has tenderness laterally, same as previous exam based on past note. Neurovascularly intact. Patient and I discussed treatment options. I do not feel that opiates are appropriate in this case and that risk outweighs benefits. We discussed non narcotic options at length. Will apply Lidoderm patch. ADvised he may continue with APAP, Ibuprofen, heat/ice. In particular, we discussed ROM. He has been doing lifting exercises with 1 gallon of milk, advised against this now. Demonstrated passive ROM. Advised he call ortho again Thursday to schedule f/u. Return precautions discussed. All of his questions and concerns were addressed, he is in agreement with this plan. HPI General Mode of arrival: ambulatory . Date/Time Provider Initiated Documentation: 05/18/21 14:04 . Limitations to Documentation: no limitations . Information obtained by: patient, RN notes reviewed and old records reviewed . History of Present Illness 36 year old M presents to the emergency department with the chief complaint of left shoulder pain, described as severe, with intensity rated at 10. Quality is described as aching, and is localized to the left and upper extremity. Patient extremity (radiates to elbow). Patient started experiencing this day(s) and it has been constant. Immobilization improves symptom(s), Movement worsens symptoms . Patient notes no other symptoms.. Patient did receive the following treatments prior to arrival, other (flexeril, NSAID) Related Data Home Medications Medication Instructions Recorded Confirmed Vyvanse 70 mg PO DAILY 12/06/20 05/18/21 acetaminophen 1,000 mg PO PRN PRN 12/06/20 05/18/21 ibuprofen 600 mg PO TID PRN 12/06/20 05/18/21 hydrocodone-acetaminophen 1 tab PO Q8H PRN #7 tab 04/30/21 05/16/21 cyclobenzaprine 10 mg PO TID PRN #10 tab 05/16/21 05/18/21 lidocaine [Lidoderm] 1 patch TOPICAL DAILY PRN #30 ea 05/18/21 Previous Rx's Medication Instructions Recorded hydrocodone-acetaminophen 1 tab PO Q8H PRN #7 tab 04/30/21 cyclobenzaprine 10 mg PO TID PRN #10 tab 05/16/21 lidocaine [Lidoderm] 1 patch TOPICAL DAILY PRN #30 ea 05/18/21 Allergies Allergy/AdvReac Type Severity Reaction Status Date / Time Penicillins Allergy Severe Anaphylaxsi Unverified 05/18/21 14:13 s codeine Allergy Intermediate Hives Unverified 05/18/21 14:13 ketorolac Allergy Intermediate Skin Rash Unverified 05/18/21 14:13 tramadol Allergy Intermediate hives Unverified 05/18/21 14:13 naproxen [From Naprosyn] Allergy Mild hives Unverified 05/18/21 14:13 bupivacaine Allergy Swelling/Ed Unverified 05/18/21 14:13 colby NUTS Allergy Severe Anaphylaxsi Uncoded 05/18/21 14:13 s General Stated Complaint: Orthopedic PATRICIA: 4 Review of Systems Constitutional Constitutional: Reports as per HPI, Denies chills, Denies fever(s) and Denies weakness Cardiovascular Cardiovascular: Reports as per HPI Respiratory Respiratory: Reports as per HPI and Denies cough Musculoskeletal Musculoskeletal: Reports as per HPI and Denies tingling Integumentary/Breasts Skin/Breast: Reports as per HPI, Denies rash and Denies wounds Neurologic Neurologic: Reports as per HPI, Denies tingling, Denies paresthesias and Denies weakness [facility] Medical History (Updated 05/18/21 @ 14:35 by FRANTZ Brewster) ADHD (attention deficit hyperactivity disorder) Bipolar 1 disorder Chronic low back pain Tobacco abuse Surgical History Appendectomy (08/14/16) Fracture, Closed Treatment right wrist and ankle Social History Smoking/Tobacco Use Status: Current every day Tobacco Type: cigarettes Smoking risk assessment performed?: Yes Alcohol Intake: current Alcohol Intake frequency: 0-2 drinks per day Alcohol type: beer Drug use: Daily Substance use type: marijuana Do you feel safe at home: Yes Do you feel safe in your relationship?: Yes Exam Const General: cooperative, healthy appearing, comfortable, no acute distress, well developed and well groomed Nutritional Appearance: well nourished and overweight Orientation: alert and awake Resp Effort & Inspection: normal respiratory effort, able to speak in complete sentences and no respiratory distress Cardio Rate: regular rate Rhythm: regular rhythm Skin General skin exam: no rashes or lesions noted Lesions: no lesions Rashes: no rashes Trauma: no lacerations or abrasions Neuro General: patient alert and patient awake Cognition: normal cognition Speech: speech normal Gait: normal gait Motor: muscle tone normal throughout Sensory Exam: no sensory deficits noted Extrem Shoulder/upper arm images: 1. Area of discomfort. No swelling, discoloration, break in the skin. No objective evidence of trauma. Patient is full range of motion of the elbow, wrist, hand. 5 and 5 halfway house counselor strength. Neurovascularly intact. Axial nerve testing is intact. Patient is able to have forward elevation to proximally 90 degrees. External rotation of the contralateral side. Internal rotation is limited secondary to discomfort. Patient does not have a Champ deformity. Secondary to discomfort, Neer and Sylvester is not able to be performed. No pain elicited with palpation of the chest wall or clavicle. Psych Appearance: grossly normal and well kempt Mental Status: mental status grossly normal Speech and Movement: speech and movement normal Course Vital Signs Vital signs: Vital Signs Temperature 36.8 C 05/18/21 14:09 Pulse 102 H 05/18/21 14:09 Respiratory Rate 18 05/18/21 14:09 Blood Pressure 173/100 H 05/18/21 14:09 Pulse Oximetry 98 05/18/21 14:09 Temperature 36.8 C 05/18/21 14:09 Temperature Source Temporal Artery Scan 05/18/21 14:09 Pulse 102 H 05/18/21 14:09 Respiratory Rate 18 05/18/21 14:09 Respiratory Effort Non-Labored 05/18/21 14:15 Blood Pressure 173/100 H 05/18/21 14:09 Blood Pressure Position Sitting 05/18/21 14:09 Pulse Oximetry 98 05/18/21 14:09 Oxygen Delivery Method Room Air 05/18/21 14:09 Oxygen Flow Rate 0 05/18/21 14:09 Pain Level 10 05/18/21 14:09 PAWSS Have you Been Recently Intoxicated or Drunk Within the Last 30 days?: No Have you Ever Experienced Previous Episodes of Alcohol Withdrawal?: No Have you ever Experienced Withdrawal Seizures?: No Have you ever Experienced Delirium Tremens(DT)s?: No Have you ever undergone Alcohol Rehabilitation Treatment (i.e, inpt ot outpatient treatment programs)?: Yes Have you ever Experienced Blackouts?: No Have you ever Combined Alcohol with other Downers within the last 90 days?: No Have you ever Combined Alcohol with any other Substance of Abuse during the last 90 days?: No Positive Blood Alcohol level on Presentation? [PCS.BAL]: No Evidence of Increased Autonomic Activity (i.e. HR>120, tremor, sweating, agitation, nausea)?: No Result: 1
[2021-05-18] MEDS: Lidocaine 5% Patch 1 PATCH TP (15:00)
== END 2021-05-18 15:46 | disposition home or self-care (01) ==
PROVIDERS: Emergency Provider Physician Assistant; PCP Nurse Practitioner Family
DX: S49.82XA Other specified injuries of left shoulder and upper arm, initial encounter (principal); X58.XXXA Exposure to other specified factors, initial encounter
CPT/HCPCS: 99283

== ENCOUNTER 2022-01-15 14:57 | Emergency (ER) | payer MEDICAID, SELFPAY ==
[2022-01-15 15:08] VITALS: BP 135/92; PULSE 116; RESP 17; TEMP 36.8; O2SAT 96
--- NOTE | 2022-01-15 15:15 | DI.RAD_ITS ---
Exam(s) XR FOOT RT COMPLETE EXAM: XR FOOT RT COMPLETE CLINICAL HISTORY: foot injury. TECHNIQUE: 2D digital imaging was performed. Three views. COMPARISON: No exams were available for comparison FINDINGS: BONES: No acute fracture is present. No bony destructive lesion is seen. JOINTS: No dislocation present. SOFT TISSUE: Normal. IMPRESSION: Unremarkable radiographs of the right foot. DATA REPOSITORY: RADIATION DOSE DELIVERED:
--- NOTE | 2022-01-16 16:49 | ED.GENADUL_ITS ---
Discharge Plan Disposition Patient Disposition: HOME Condition: Stable Discharge Details Clinical Impression: Pain, dental, Muscle strain of foot Primary Care Provider: Elodia Bermeo ED Provider: Ute Lewis Home Meds and New Rx's Prescriptions: Continued acetaminophen 500 mg Tablet 1,000 mg PO PRN PRN ibuprofen 600 mg Tablet 600 mg PO TID PRN Discharge Instructions Additional Instructions: follow-up with dentist stick to soft foods only use boot for comfort repeat xray in one week with persistent pain return earlier with new or worsening complaints Discharge Data Discharge Date/Time-TO BE ENTERED AT DEPARTURE: 01/15/22 16:36 Medical Decision Making X-ray does not show evidence of acute fracture per radiology interpretation and my review Pulse 108 at discharge, baseline for patient Patient repeatedly asked for opiate analgesia, I see no clear indication for opiate analgesia at this time, patient has been to this facility numerous times for dental pain and has never followed up with dentist, in the past even set patient up for an appointment with a dentist and he has not followed through He is aware that he will need follow-up regarding this and he is given a list of dentists to follow-up with He is given a boot for comfort Return precautions discussed and patient expressed understanding Medical Records Medical records reviewed: Yes I reviewed the patient's medical records. Lab Data Lab results reviewed: Yes I reviewed the patient's lab results. HPI General Date/Time Provider Initiated Documentation: 01/15/22 15:11 . HPI Narrative: This 36-year-old male presents with report of right foot pain and right upper dental pain after a fall. He stepped foot while walking in the road and fell forward, hitting his right upper tooth. He denies any loss of consciousness or any additional injuries. The event occurred 48 hours prior to arrival. He states his tetanus is up-to-date. He denies any headache. He has had d ifficulty eating and drinking secondary to a loose tooth. Pain is exacerbated with walking. He denies any back pain, abdominal pain, chest pain, or any additional complaints at this time. Related Data Home Medications Medication Instructions Recorded Confirmed acetaminophen 500 mg tablet 1,000 mg PO PRN PRN 12/06/20 01/15/22 ibuprofen 600 mg tablet 600 mg PO TID PRN 12/06/20 01/15/22 Allergies Allergy/AdvReac Type Severity Reaction Status Date / Time Penicillins Allergy Severe Anaphylaxsi Unverified 01/15/22 15:14 s codeine Allergy Intermediate Hives Unverified 01/15/22 15:14 ketorolac Allergy Intermediate Skin Rash Unverified 01/15/22 15:14 tramadol Allergy Intermediate hives Unverified 01/15/22 15:14 naproxen [From Naprosyn] Allergy Mild hives Unverified 01/15/22 15:14 bupivacaine Allergy Swelling/Ed Unverified 01/15/22 15:14 colby NUTS Allergy Severe Anaphylaxsi Uncoded 01/15/22 15:14 s General Stated Complaint: Orthopedic PATRICIA: 4 Review of Systems All systems reviewed & are unremarkable except as noted in HPI and below PFSH All Active Problems (Updated 01/15/22 @ 16:03 by FRANTZ Wadsworth) Left shoulder strain (Acute) Muscle strain of foot (Acute) Back strain (Acute) Sciatica (Acute) Pain, dental (Acute) Cellulitis of right anterior lower leg (Acute) Medical History (Updated 01/15/22 @ 16:03 by FRANTZ Wadsworth) ADHD (attention deficit hyperactivity disorder) Bipolar 1 disorder Chronic low back pain Tobacco abuse Surgical History Appendectomy (08/14/16) Fracture, Closed Treatment right wrist and ankle Social History Smoking/Tobacco Use Status: Current every day Tobacco Type: cigarettes Smoking risk assessment performed?: Yes Alcohol Intake: current Alcohol Intake frequency: 0-2 drinks per day Alcohol type: beer Drug use: Daily Substance use type: marijuana Do you feel safe at home: Yes Do you feel safe in your relationship?: Yes Exam Const General: cooperative, comfortable and no acute distress [facility] Teeth image: 1. Fracture noted, lose Other: Uvula midline Eyes Pupils: PERRL Neck Other: No midline tenderness Resp Effort & Inspection: normal respiratory effort Cardio Rate: tachycardic Neuro General: patient alert and patient oriented x3 Other: GCS 15 Extrem Other: Right foot pain tenderness predominantly at the right great toe Neurovascularly intact Course Vital Signs Vital signs: Vital Signs Temperature 36.8 C 01/15/22 15:08 Pulse 116 H 01/15/22 15:08 Respiratory Rate 17 01/15/22 15:08 Blood Pressure 135/92 H 01/15/22 15:08 Pulse Oximetry 96 01/15/22 15:08 Temperature 36.8 C 01/15/22 15:08 Temperature Source Temporal Artery Scan 01/15/22 15:08 Pulse 116 H 01/15/22 15:08 Respiratory Rate 17 01/15/22 15:08 Respiratory Effort Non-Labored 01/15/22 15:10 Blood Pressure 135/92 H 01/15/22 15:08 Blood Pressure Position Sitting 01/15/22 15:08 Pulse Oximetry 96 01/15/22 15:08 Oxygen Delivery Method Room Air 01/15/22 15:08 Oxygen Flow Rate 0 01/15/22 15:08 Pain Level 10 01/15/22 15:12 PAWSS Have you Been Recently Intoxicated or Drunk Within the Last 30 days?: No Have you Ever Experienced Previous Episodes of Alcohol Withdrawal?: No Have you ever Experienced Withdrawal Seizures?: No Have you ever Experienced Delirium Tremens(DT)s?: No Have you ever undergone Alcohol Rehabilitation Treatment (i.e, inpt ot outpatient treatment programs)?: No Have you ever Experienced Blackouts?: No Have you ever Combined Alcohol with other Downers within the last 90 days?: No Have you ever Combined Alcohol with any other Substance of Abuse during the last 90 days?: No Result: 0
== END 2022-01-15 16:36 | disposition home or self-care (01) ==
PROVIDERS: Emergency Provider Physician Assistant; PCP Nurse Practitioner Family
DX: S96.811A Strain of other specified muscles and tendons at ankle and foot level, right foot, initial encounter (principal); K08.89 Other specified disorders of teeth and supporting structures; S02.5XXA Fracture of tooth (traumatic), initial encounter for closed fracture; X50.1XXA Overexertion from prolonged static or awkward postures, initial encounter; W18.39XA Other fall on same level, initial encounter
CPT/HCPCS: 29515; 99283; 73630

== ENCOUNTER 2022-01-21 10:36 | Emergency (ER) | payer MEDICAID, SELFPAY ==
[2022-01-21 10:54] VITALS: BP 135/87; PULSE 93; RESP 18; O2SAT 99
--- NOTE | 2022-01-21 11:00 | DI.US_ITS ---
Exam(s) US SOFT TISSUE EXTREMITY EXAM: US SOFT TISSUE EXTREMITY CLINICAL HISTORY: right leg. TECHNIQUE: Ultrasound was performed using standard protocol. COMPARISON: No exams were available for comparison FINDINGS: Sonographic assessment utilizing grayscale and color Doppler imaging was performed and targeted to th e area of clinical concern. There is edema seen in the subcutaneous tissues in the area of concern. No foreign body is seen sono graphically. No focal fluid collection is seen to suggest an abscess. IMPRESSION: 1. No sonographic evidence of a foreign body. 2. Results of this exam have been verbally communicated with provider. DATA REPOSITORY:
--- NOTE | 2022-01-21 12:03 | ED.GENADUL_ITS ---
Discharge Plan Disposition Patient Disposition: HOME Condition: Stable Discharge Details Clinical Impression: Cellulitis, Puncture wound Primary Care Provider: Elodia Bermeo ED Provider: Ute Lewis Home Meds and New Rx's Prescriptions: New clindamycin HCl 150 mg capsule 450 mg PO TID Qty: 90 0RF hydrocodone-acetaminophen 5-325 mg tablet 1 tab PO Q6H PRNQty: 6 0RF No Action acetaminophen 500 mg Tablet 1,000 mg PO PRN PRN ibuprofen 600 mg Tablet 600 mg PO TID PRN Discharge Instructions Instructions: Puncture Wound (ED), Cellulitis (ED) Additional Instructions: Warm compresses Elevate your leg as much as possible Take the antibiotics as prescribed Change dressing daily Return earlier should you have new or worsening complaints Yogurt daily while on antibiotic The antibiotic will likely take 2 to 3 days to be effective Recheck in 72 hours recommended Referrals: Elodia Bermeo [Primary Care Provider] - 3 days Discharge Data Discharge Date/Time-TO BE ENTERED AT DEPARTURE: 01/21/22 12:28 Medical Decision Making wound culture pending us that does not show fb or abscess low suspicion for osteomyelitis clinically placed on clindamycin recheck in 48 hours recommended Medical Records Medical records reviewed: Yes I reviewed the patient's medical records. Lab Data Lab results reviewed: Yes I reviewed the patient's lab results. HPI General Date/Time Provider Initiated Documentation: 01/21/22 10:39 . HPI Narrative: 36-year-old male presents with left leg pain with puncture from a fall 2 weeks ago. now pt is reporting increased swelling and redness to area. denies fever or chills. states draining for the past several days. denies additional complaints at this time. Related Data Home Medications Medication Instructions Recorded Confirmed acetaminophen 500 mg tablet 1,000 mg PO PRN PRN 12/06/20 01/15/22 ibuprofen 600 mg tablet 600 mg PO TID PRN 12/06/20 01/15/22 clindamycin HCl 150 mg capsule 450 mg PO TID #90 caps 01/21/22 hydrocodone 5 mg-acetaminophen 325 1 tab PO Q6H PRN #6 tabs 01/21/22 mg tablet Previous Rx's Medication Instructions Recorded clindamycin HCl 150 mg capsule 450 mg PO TID #90 caps 01/21/22 hydrocodone 5 mg-acetaminophen 325 1 tab PO Q6H PRN #6 tabs 01/21/22 mg tablet Allergies Allergy/AdvReac Type Severity Reaction Status Date / Time Penicillins Allergy Severe Anaphylaxsi Unverified 01/15/22 15:14 s codeine Allergy Intermediate Hives Unverified 01/15/22 15:14 ketorolac Allergy Intermediate Skin Rash Unverified 01/15/22 15:14 tramadol Allergy Intermediate hives Unverified 01/15/22 15:14 naproxen [From Naprosyn] Allergy Mild hives Unverified 01/15/22 15:14 bupivacaine Allergy Swelling/Ed Unverified 01/15/22 15:14 colby NUTS Allergy Severe Anaphylaxsi Uncoded 01/15/22 15:14 s General Stated Complaint: Cellulitis PATRICIA: 3 Review of Systems All systems reviewed & are unremarkable except as noted in HPI and below PFSH All Active Problems (Updated 01/21/22 @ 12:07 by FRANTZ Wadsworth) Left shoulder strain (Acute) Muscle strain of foot (Acute) Cellulitis (Acute) Puncture wound (Acute) Back strain (Acute) Sciatica (Acute) Pain, dental (Acute) Cellulitis of right anterior lower leg (Acute) Medical History (Updated 01/21/22 @ 12:07 by FRANTZ Wadsworth) ADHD (attention deficit hyperactivity disorder) Bipolar 1 disorder Chronic low back pain Tobacco abuse Surgical History Appendectomy (08/14/16) Fracture, Closed Treatment right wrist and ankle Social History Smoking/Tobacco Use Status: Current every day Tobacco Type: cigarettes Smoking risk assessment performed?: Yes Alcohol Intake: current Alcohol Intake frequency: 0-2 drinks per day Alcohol type: beer Drug use: Daily Substance use type: marijuana Do you feel safe at home: Yes Do you feel safe in your relationship?: Yes Exam Const General: cooperative and no acute distress Eyes Sclera: sclerae normal Resp Effort & Inspection: normal respiratory effort Cardio Rate: regular rate Skin Full body images: 1. erythema, puncture draining purulent material distal pulses intact no crepitus no fluctuance 2 inches induration no lymphangitis Neuro General: patient alert and patient oriented x3 Extrem Other: no calf swelling or tenderness distal pulses intact Course Vital Signs Vital signs: Vital Signs Pulse 93 H 07/12/22 10:54 Respiratory Rate 18 01/21/22 10:54 Blood Pressure 135/87 01/21/22 10:54 Pulse Oximetry 99 01/21/22 10:54 Pulse 93 H 01/21/22 10:54 Respiratory Rate 18 01/21/22 10:54 Blood Pressure 135/87 01/21/22 10:54 Blood Pressure Position Sitting 01/21/22 10:54 Pulse Oximetry 99 01/21/22 10:54 Oxygen Delivery Method Room Air 01/21/22 10:54 Oxygen Flow Rate 0 01/21/22 10:54
--- NOTE | 2022-01-25 15:33 | W.ED.FU ---
Follow Up Plan: Call patient and attempt to change antibiotics, left a voicemail message on his listed phone number, cell phone number after calling his mother for additional information and did not receive a return call during my shift on 01/23/2022
== END 2022-01-21 12:28 | disposition home or self-care (01) ==
PROVIDERS: Emergency Provider Physician Assistant; PCP Nurse Practitioner Family
DX: S81.832A Puncture wound without foreign body, left lower leg, initial encounter (principal); L03.116 Cellulitis of left lower limb; F17.210 Nicotine dependence, cigarettes, uncomplicated; W19.XXXA Unspecified fall, initial encounter; B96.5 Pseudomonas (aeruginosa) (mallei) (pseudomallei) as the cause of diseases classified elsewhere; B95.61 Methicillin susceptible Staphylococcus aureus infection as the cause of diseases classified elsewhere; B95.0 Streptococcus, group A, as the cause of diseases classified elsewhere
CPT/HCPCS: 76881; 87077; 99284; 87070; 87186; 87205

== ENCOUNTER 2022-02-27 16:24 | Emergency (ER) | payer MEDICAID, SELFPAY ==
[2022-02-27 16:27] VITALS: BP 138/99; PULSE 113; RESP 18; O2SAT 99
--- NOTE | 2022-02-27 16:47 | ED.GENADUL_ITS ---
Discharge Plan Disposition Patient Disposition: HOME Condition: Stable Discharge Details Clinical Impression: Pain, dental Primary Care Provider: Elodia Bermeo ED Provider: Fe Miller Home Meds and New Rx's Prescriptions: New clindamycin HCl 150 mg capsule 450 mg PO TID 7 Days Qty: 63 0RF No Action acetaminophen 500 mg Tablet 1,000 mg PO PRN PRN ibuprofen 600 mg Tablet 600 mg PO TID PRN Discharge Instructions Instructions: Toothache (ED) Additional Instructions: Practice good oral hygiene. You do still need to see a dentist. Rinse out mouth after eating or drinking anything. Try to cut back on smoking. Take antibiotic as directed. Apply the benzoin topical gel up to 3 times daily as needed for pain. Please take Tylenol or Ibuprofen with food every 4-6 hours as needed for pain and swelling. Follow up with primary care provider in 3-5 days. Return to ED sooner if any worsening or concerns. Increase oral fluids. Referrals: Elodia Bermeo [Primary Care Provider] - 1 week Discharge Data Discharge Date/Time-TO BE ENTERED AT DEPARTURE: 02/27/22 17:11 HPI General Mode of arrival: ambulatory . Date/Time Provider Initiated Documentation: 02/27/22 16:26 . Limitations to Documentation: no limitations . Information obtained by: patient, RN notes reviewed and old records reviewed . HPI Narrative: 37-year-old male presents to the ER with chief complaint of right upper tooth pain which has been ongoing for the last 4 to 5 days. Patient does have a broken tooth with surrounding erythemic swollen gums. No evidence of abscess. No other complaints. Does have a past medical history of bipolar, tobacco abuse, ADHD. He has been taking Tylenol and ibuprofen with little to no relief. He was recently on antibiotics for a leg wound in January. Related Data Home Medications Medication Instructions Recorded Confirmed acetaminophen 500 mg tablet 1,000 mg PO PRN PRN 12/06/20 02/27/22 ibuprofen 600 mg tablet 600 mg PO TID PRN 12/06/20 02/27/22 clindamycin HCl 150 mg capsule 450 mg PO TID Dental infection 7 02/27/22 days #63 caps Previous Rx's Medication Instructions Recorded clindamycin HCl 150 mg capsule 450 mg PO TID Dental infection 7 02/27/22 days #63 caps Allergies Allergy/AdvReac Type Severity Reaction Status Date / Time Penicillins Allergy Severe Anaphylaxsi Unverified 01/15/22 15:14 s codeine Allergy Intermediate Hives Unverified 01/15/22 15:14 ketorolac Allergy Intermediate Skin Rash Unverified 01/15/22 15:14 tramadol Allergy Intermediate hives Unverified 01/15/22 15:14 naproxen [From Naprosyn] Allergy Mild hives Unverified 01/15/22 15:14 bupivacaine Allergy Swelling/Ed Unverified 01/15/22 15:14 colby NUTS Allergy Severe Anaphylaxsi Uncoded 01/15/22 15:14 s General Stated Complaint: DentalOral PATRICIA: 3 Review of Systems All systems reviewed & are unremarkable except as noted in HPI and below ENT Ears, Nose, Mouth, and Throat: Reports dental pain and Denies dysphagia Gastrointestinal Gastrointestinal: Denies dysphagia PFSH All Active Problems (Updated 02/27/22 @ 16:51 by Fe Miller NP) Left shoulder strain (Acute) Back strain (Acute) Sciatica (Acute) Pain, dental (Acute) Cellulitis of right anterior lower leg (Acute) Medical History (Updated 02/27/22 @ 16:51 by Fe Miller NP) ADHD (attention deficit hyperactivity disorder) Bipolar 1 disorder Chronic low back pain Tobacco abuse Surgical History Appendectomy (08/14/16) Fracture, Closed Treatment right wrist and ankle Social History Smoking/Tobacco Use Status: Current every day Tobacco Type: cigarettes Smoking risk assessment performed?: Yes Alcohol Intake: current Alcohol Intake frequency: 0-2 drinks per day Alcohol type: beer Drug use: Occasionally Substance use type: marijuana Do you feel safe at home: Yes Do you feel safe in your relationship?: Yes Exam [facility] Teeth image: 1. Poor dentition throughout, there is a broken tooth #6 with surrounding gingival erythema and swelling. No evidence of abscess. Course Vital Signs Vital signs: Vital Signs Pulse 113 H 02/27/22 16:27 Respiratory Rate 18 02/27/22 16:27 Blood Pressure 138/99 H 02/27/22 16:27 Pulse Oximetry 99 02/27/22 16:27 Pulse 113 H 02/27/22 16:27 Respiratory Rate 18 02/27/22 16:27 Respiratory Effort 02/27/22 16:33 Blood Pressure 138/99 H 02/27/22 16:27 Blood Pressure Position Sitting 02/27/22 16:27 Pulse Oximetry 99 02/27/22 16:27 Oxygen Delivery Method Room Air 02/27/22 16:27 Oxygen Flow Rate 0 02/27/22 16:27 Pain Level 9 02/27/22 16:34
[2022-02-27] MEDS: Benzocaine 20% Gel 30 GM JAR MM (17:02)
[2022-02-27] MEDS: Clindamycin 150 MG CAP 450 MG PO (17:03)
[2022-02-27 17:04] VITALS: PULSE 109; TEMP 36.9
== END 2022-02-27 17:11 | disposition home or self-care (01) ==
PROVIDERS: Emergency Provider Registered Nurse Emergency; PCP Nurse Practitioner Family
DX: K08.89 Other specified disorders of teeth and supporting structures (principal); K03.81 Cracked tooth; F17.210 Nicotine dependence, cigarettes, uncomplicated
CPT/HCPCS: 99283

== ENCOUNTER 2022-04-25 11:07 | Emergency (ER) | payer MEDICAID, SELFPAY ==
[2022-04-25 11:12] VITALS: BP 135/89; PULSE 90; RESP 18; O2SAT 98
--- NOTE | 2022-04-25 11:37 | W.ED.GENAD ---
Discharge Plan Disposition Patient Disposition: HOME Condition: Stable Discharge Details Clinical Impression: Infected dental caries Primary Care Provider: Elodia Bermeo ED Provider: Vick Hoskins Home Meds and New Rx's Prescriptions: New clindamycin HCl 150 mg capsule 450 mg PO TID 7 Days Qty: 63 0RF Continued acetaminophen 500 mg Tablet 1,000 mg PO PRN PRN ibuprofen 600 mg Tablet 600 mg PO TID PRN dextroamphetamine-amphetamine 25 mg capsule,extended release 24hr PO dextroamphetamine-amphetamine 25 mg capsule,extended release 24hr PO quetiapine 50 mg tablet Discharge Instructions Instructions: Dental Abscess (ED) Additional Instructions: It is very important that you take antibiotics as prescribed and follow-up with a dental provider for definitive care of your complaint. At this time it appears that you have an early infection but if you have significant changes of symptoms including fever chills, worsening facial swelling, difficulty breathing or swallowing you should return immediately to the emergency department. Otherwise you may continue to take [id number] pain medication and please ensure that you do not take any more than 4000 mg of acetaminophen in a 24-hour period. Referrals: [facility] [Provider Group] - 1 week Medical Decision Making Patient presenting to the emergency department for chief complaint of dental pain. Patient reports he has multiple fractured teeth but he started having significant dental pain and some facial swelling since yesterday. Patient denies fever chills or other symptoms. Patient is requesting pain medication and consistently stating he has allergies to significant other pain medications. Physical exam does show fractured tooth at gumline and surrounding erythema to tooth #12. There is mild facial swelling but no palpable abscess. no signs of deep neck space infection ( Retropharyngeal abscess, Gurdeep's angina, Parapharyngeal space infection, Peritonsillar Abscess ([employer])) or Epiglottitis. Pt non toxic and stable. I do feel that starting patient on antibiotics is appropriate and offered patient IV acetaminophen but he stated he did not have time so we will give him oral acetaminophen. I am concerned for possible drug-seeking behavior due to multiple requests of oral medications including opiates. Patient was informed that I did do not feel his condition requires opioid medications at this time. After discussion of diagnosis and plan of care patient has no further needs, questions, or concerns and states clear understanding to return to the emergency department for any worsening symptoms. This documentation was generated using Dragon dictation system, please disregard any oddities of phrase or misspellings. HPI General Mode of arrival: ambulatory. Date/Time Provider Initiated Documentation: 04/25/22 11:25. Limitations to Documentation: no limitations. Information obtained by: patient, RN notes reviewed and old records reviewed. History of Present Illness 37 year old M presents to the emergency department with the chief complaint of Dental pain, described as moderate and similar to prior episodes, with intensity rated at 8. Quality is described as aching, and is localized to the face. Patient reports no radiation. Patient started experiencing this day(s) (1) and it has been constant. No relieving factors improve symptom(s), No exacerbating factors reported . Patient notes no other symptoms.. Patient did receive the following treatments prior to arrival, NSAID Related Data Home Medications Medication Instructions Recorded Confirmed acetaminophen 500 mg tablet 1,000 mg PO PRN PRN 12/06/20 02/27/22 ibuprofen 600 mg tablet 600 mg PO TID PRN 12/06/20 02/27/22 clindamycin HCl 150 mg capsule 450 mg PO TID 7 days #63 caps 04/25/22 dextroamphetamine-amphetamine ER PO 04/25/22 04/25/22 25 mg 24hr capsule,extend release dextroamphetamine-amphetamine ER cap PO 04/25/22 04/25/22 25 mg 24hr capsule,extend release quetiapine 50 mg tablet tab 04/25/22 04/25/22 Previous Rx's Medication Instructions Recorded clindamycin HCl 150 mg capsule 450 mg PO TID 7 days #63 caps 04/25/22 Allergies Allergy/AdvReac Type Severity Reaction Status Date / Time Penicillins Allergy Severe Anaphylaxsi Unverified 01/15/22 15:14 s codeine Allergy Intermediate Hives Unverified 01/15/22 15:14 ketorolac Allergy Intermediate Skin Rash Unverified 01/15/22 15:14 tramadol Allergy Intermediate hives Unverified 01/15/22 15:14 naproxen [From Naprosyn] Allergy Mild hives Unverified 01/15/22 15:14 bupivacaine Allergy Swelling/Ed Unverified 01/15/22 15:14 colby NUTS Allergy Severe Anaphylaxsi Uncoded 01/15/22 15:14 s General Stated Complaint: DentalOral PATRICIA: 4 Review of Systems Constitutional Constitutional: Denies chills and Denies fever(s) ENT Ears, Nose, Mouth, and Throat: Reports as per HPI, Denies change in voice, Reports dental pain, Denies dysphagia, Denies throat swelling and Denies tongue swelling Cardiovascular Cardiovascular: Denies chest pain and Denies dyspnea Respiratory Respiratory: Denies dyspnea, Denies stridor and Denies wheezing Gastrointestinal Gastrointestinal: Denies abdominal pain, Denies dysphagia, Denies nausea and Denies vomiting Integumentary/Breasts Skin/Breast: Denies rash Allergic/Immunologic Allergic/Immunologic: Denies throat swelling, Denies tongue swelling and Denies wheezing PFSH All Active Problems Left shoulder strain (Acute) Infected dental caries (Acute) Back strain (Acute) Sciatica (Acute) Pain, dental (Acute) Cellulitis of right anterior lower leg (Acute) Medical History ADHD (attention deficit hyperactivity disorder) Bipolar 1 disorder Chronic low back pain Tobacco abuse Surgical History Appendectomy (08/14/16) Fracture, Closed Treatment right wrist and ankle Social History Smoking/Tobacco Use Status: Current every day Tobacco Type: cigarettes Smoking risk assessment performed?: Yes Alcohol Intake: current Alcohol Intake frequency: 0-2 drinks per day Alcohol type: beer Drug use: Occasionally Substance use type: marijuana Do you feel safe at home: Yes Do you feel safe in your relationship?: Yes Exam Const General: cooperative Orientation: alert, awake and oriented x3 Limitations: mental status not altered [facility] Head: normal to inspection, normocephalic and atraumatic Ears: hearing grossly normal bilaterally, normal mastoids bilaterally and no periauricular adenopathy General nose exam: external nose normal Mouth: oropharynx normal, no drooling, no muffled voice, normal tongue and no trismus Teeth and gingiva: caries, poor dentition and other (fractured tooth #12 with erythema surrounding the base of the tooth) Throat: posterior oropharynx normal, tonsils normal and uvula midline Eyes General: appearance normal, both eyes and all related structures Pupils: PERRL Neck Neck: normal visual inspection, full ROM, no lymphadenopathy, no meningeal signs, trachea midline, supple, no anterior neck swelling and no midline deformity Resp Effort & Inspection: normal respiratory effort and able to speak in complete sentences Course Vital Signs Vital signs: Vital Signs Pulse 90 04/25/22 11:12 Respiratory Rate 18 04/25/22 11:12 Blood Pressure 135/89 04/25/22 11:12 Pulse Oximetry 98 04/25/22 11:12 Pulse 90 04/25/22 11:12 Respiratory Rate 18 04/25/22 11:12 Respiratory Effort Non-Labored 04/25/22 11:34 Respiratory Depth Normal 04/25/22 11:34 Respiratory Pattern Normal 04/25/22 11:34 Blood Pressure 135/89 04/25/22 11:12 Blood Pressure Position Supine 04/25/22 11:12 Pulse Oximetry 98 04/25/22 11:12 Oxygen Delivery Method Room Air 04/25/22 11:34 Oxygen Flow Rate 0 04/25/22 11:34 Pain Level 8 04/25/22 11:12
[2022-04-25] MEDS: Clindamycin 150 MG CAP 450 MG PO (11:40)
[2022-04-25] MEDS: Acetaminophen 500 MG TAB 1000 MG PO (11:41)
== END 2022-04-25 14:31 | disposition home or self-care (01) ==
PROVIDERS: Emergency Provider Nurse Practitioner Family; PCP Nurse Practitioner Family
DX: K02.9 Dental caries, unspecified (principal); K03.81 Cracked tooth; F17.210 Nicotine dependence, cigarettes, uncomplicated
CPT/HCPCS: 99283; 99284

== ENCOUNTER 2022-05-24 09:27 | Emergency (ER) | payer MEDICAID, SELFPAY ==
[2022-05-24 09:35] VITALS: BP 143/93; PULSE 112; RESP 17; TEMP 36.6; O2SAT 95
--- NOTE | 2022-05-24 09:46 | W.ED.GENAD ---
Discharge Plan Disposition Patient Disposition: HOME Condition: Stable Discharge Details Clinical Impression: Infected dental caries Primary Care Provider: Elodia Bermeo ED Provider: Vick Hoskins Home Meds and New Rx's Prescriptions: New clindamycin HCl [Cleocin HCl] 150 mg capsule 450 mg PO TID 7 Days Qty: 63 0RF Continued acetaminophen 500 mg Tablet 1,000 mg PO PRN PRN ibuprofen 600 mg Tablet 600 mg PO TID PRN dextroamphetamine-amphetamine 25 mg capsule,extended release 24hr PO dextroamphetamine-amphetamine 25 mg capsule,extended release 24hr PO quetiapine 50 mg tablet Discharge Instructions Instructions: Dental Abscess (ED) Additional Instructions: You may use acetaminophen and [id number] Orajel as directed on packaging for continued dental pain. You may also apply warm compresses to your face as this will help with the discomfort. If you develop any facial swelling, persistent fever, or severe change in your symptoms feel free to return the emergency department for reassessment otherwise as previously discussed it is very important that you find a dental provider to give you definitive care as the emergency department can not provide definitive care for your dental issues. Referrals: Elodia Bermeo [Primary Care Provider] - (As needed for reassessment) Medical Decision Making Patient presenting to the emergency department for chief complaint of dental pain. Patient is familiar to myself as I have seen him multiple times and saw him approximately 1 month ago for similar presentation. Patient has tooth #12 fractured to base with surrounding erythema but no obvious abscess or palpable area to drain. no signs of deep neck space infection ( Retropharyngeal abscess, Gurdeep's angina, Parapharyngeal space infection, Peritonsillar Abscess (ACETYLENE TORCH BURNER)) or Epiglottitis. Pt non toxic and stable. Given fractured tooth to base and worsening dental pain over the last 2 weeks with acute worsening of the last couple days will place patient on antibiotics. I am slightly suspicious for potential narcotic abuse given patient's allergies to NSAIDs and bupivacaine and patient stating that he is no longer allergic to codeine and can take T3. At this time will recommend patient use [id number] Orajel and acetaminophen for pain control along with salt water rinses. After discussion of diagnosis and plan of care patient has no further needs, questions, or concerns and states clear understanding to return to the emergency department for any worsening symptoms. This documentation was generated using [email or web address] dictation system, please disregard any oddities of phrase or misspellings. HPI General Mode of arrival: ambulatory. Date/Time Provider Initiated Documentation: 05/24/22 09:32. Limitations to Documentation: no limitations. Information obtained by: patient and RN notes reviewed. History of Present Illness 37 year old M presents to the emergency department with the chief complaint of Dental pain , described as moderate, severe and similar to prior episodes, with intensity rated at 10. Quality is described as aching and sharp, and is localized to the face and mouth. Patient started experiencing this week(s) (2) and it has been constant. No relieving factors improve symptom(s), No exacerbating factors reported . Patient notes no other symptoms.. Patient did receive the following treatments prior to arrival, NSAID Related Data Home Medications Medication Instructions Recorded Confirmed acetaminophen 500 mg tablet 1,000 mg PO PRN PRN 12/06/20 05/24/22 ibuprofen 600 mg tablet 600 mg PO TID PRN 12/06/20 05/24/22 dextroamphetamine-amphetamine ER PO 04/25/22 04/25/22 25 mg 24hr capsule,extend release dextroamphetamine-amphetamine ER cap PO 04/25/22 04/25/22 25 mg 24hr capsule,extend release quetiapine 50 mg tablet tab 04/25/22 04/25/22 clindamycin HCl 150 mg capsule 450 mg PO TID 7 days #63 caps 05/24/22 (Cleocin HCl) Previous Rx's Medication Instructions Recorded clindamycin HCl 150 mg capsule 450 mg PO TID 7 days #63 caps 05/24/22 (Cleocin HCl) Allergies Allergy/AdvReac Type Severity Reaction Status Date / Time Penicillins Allergy Severe Anaphylaxsi Unverified 05/24/22 09:41 s ketorolac Allergy Intermediate Skin Rash Unverified 05/24/22 09:41 tramadol Allergy Intermediate hives Unverified 05/24/22 09:41 naproxen [From Naprosyn] Allergy Mild hives Unverified 05/24/22 09:41 bupivacaine Allergy Swelling/Ed Unverified 05/24/22 09:41 colby NUTS Allergy Severe Anaphylaxsi Uncoded 05/24/22 09:41 s General Stated Complaint: DentalOral PATRICIA: 4 Review of Systems Constitutional Constitutional: Denies chills and Denies fever(s) ENT Ears, Nose, Mouth, and Throat: Reports as per HPI, Denies change in voice, Reports dental pain, Denies dysphagia, Denies throat swelling and Denies tongue swelling Cardiovascular Cardiovascular: Denies chest pain and Denies dyspnea Respiratory Respiratory: Denies dyspnea, Denies stridor and Denies wheezing Gastrointestinal Gastrointestinal: Denies abdominal pain, Denies dysphagia, Denies nausea and Denies vomiting Integumentary/Breasts Skin/Breast: Denies rash Allergic/Immunologic Allergic/Immunologic: Denies throat swelling, Denies tongue swelling and Denies wheezing PFSH All Active Problems (Updated 05/24/22 @ 09:51 by Vick Hoskins NP) Left shoulder strain (Acute) Infected dental caries (Acute) Back strain (Acute) Sciatica (Acute) Pain, dental (Acute) Cellulitis of right anterior lower leg (Acute) Medical History (Updated 05/24/22 @ 09:51 by Vick Hoskins NP) ADHD (attention deficit hyperactivity disorder) Bipolar 1 disorder Chronic low back pain Tobacco abuse Surgical History Appendectomy (08/14/16) Fracture, Closed Treatment right wrist and ankle Social History Smoking/Tobacco Use Status: Current every day Tobacco Type: cigarettes Smoking risk assessment performed?: Yes Alcohol Intake: current Alcohol Intake frequency: 0-2 drinks per day Alcohol type: beer Drug use: Occasionally Substance use type: marijuana Do you feel safe at home: Yes Do you feel safe in your relationship?: Yes Exam Const General: cooperative Orientation: alert, awake and oriented x3 Limitations: mental status not altered [facility] Head: normal to inspection, normocephalic and atraumatic Ears: hearing grossly normal bilaterally, normal mastoids bilaterally and no periauricular adenopathy General nose exam: external nose normal Mouth: oropharynx normal, no drooling, no muffled voice, normal tongue and no trismus Teeth and gingiva: caries, poor dentition and other (fractured tooth #12 with erythema surrounding the base of the tooth) Throat: posterior oropharynx normal, tonsils normal and uvula midline Eyes General: appearance normal, both eyes and all related structures Pupils: PERRL Neck Neck: normal visual inspection, full ROM, no lymphadenopathy, no meningeal signs, trachea midline, supple, no anterior neck swelling and no midline deformity Resp Effort & Inspection: normal respiratory effort and able to speak in complete sentences Course Vital Signs Vital signs: Vital Signs Temperature 36.6 C 05/24/22 09:35 Pulse 112 H 05/24/22 09:35 Respiratory Rate 17 05/24/22 09:35 Blood Pressure 143/93 H 05/24/22 09:35 Pulse Oximetry 95 05/24/22 09:35 Temperature 36.6 C 05/24/22 09:35 Temperature Source Tympanic 05/24/22 09:35 Pulse 112 H 05/24/22 09:35 Respiratory Rate 17 05/24/22 09:35 Respiratory Effort Non-Labored 05/24/22 09:39 Blood Pressure 143/93 H 05/24/22 09:35 Blood Pressure Position Sitting 05/24/22 09:35 Pulse Oximetry 95 05/24/22 09:35 Oxygen Delivery Method Room Air 05/24/22 09:35 Oxygen Flow Rate 0 05/24/22 09:35 Pain Level 10 05/24/22 09:40 Comment 05/24/22 09:35
== END 2022-05-24 09:57 | disposition home or self-care (01) ==
PROVIDERS: Emergency Provider Nurse Practitioner Family; PCP Nurse Practitioner Family
DX: K04.7 Periapical abscess without sinus (principal); K02.9 Dental caries, unspecified
CPT/HCPCS: 99283